=== PATIENT | female | born 1980 | race Caucasian/White ===

== ENCOUNTER → 2019-06-19 08:23 | Outpatient (CLI) | payer MEDICAID, SELFPAY ==
[2019-06-19 09:48] LABS: Thyroid Stim Hormone (TSH) 0.44 uIU/mL (0.358-3.74)
== END ==
LOC: LAB.FUTURE 08:26 → LAB 08:36
PROVIDERS: Family Provider Student in an Organized Health Care Education/Training Program; PCP Student in an Organized Health Care Education/Training Program; Referring Provider Student in an Organized Health Care Education/Training Program; Visit Provider Student in an Organized Health Care Education/Training Program
DX: E03.1 Congenital hypothyroidism without goiter (principal)
CPT/HCPCS: 36415; 84443

== ENCOUNTER → 2019-07-26 06:16 | Outpatient (CLI) | payer MEDICAID, SELFPAY ==
--- NOTE | 2019-07-26 14:09 | NEURO ---
NCS and/or EMG Patient Report Ordering Doctor: Nishant Hayden DATE OF SERVICE: 07/26/19 Paz Morrow is a 38-year-old female presents for electrodiagnostic testing of the lower limbs. She reports heavy feeling in her legs with tingling in the feet. Electrodiagnostic findings: Peroneal motor nerves demonstrate normal distal latency, amplitude and conduction velocity bilaterally. Normal tibial motor response bilaterally. Normal peroneal and tibial F waves. H-reflex is normal bilaterally. Prolonged left sural latency is noted. Normal right sural response. Normal superficial peroneal response bilaterally. Normal plantar responses bilaterally. On needle EMG, all muscles tested in the lower limbs, as well as lumbar paraspinal showed no evidence of denervation with normal motor unit action potentials. Electrodiagnostic impression: This is an abnormal study in the lower limbs. 1. 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 2. No electrodiagnostic evidence is noted for peripheral polyneuropathy. 3. No electrodiagnostic evidence is noted for lumbosacral radiculopathy. 4. No electrodiagnostic evidence noted for tarsal tunnel syndrome. If there are any further questions, please not hesitate to contact me
== END ==
PROVIDERS: Family Provider Student in an Organized Health Care Education/Training Program; PCP Student in an Organized Health Care Education/Training Program; Referring Provider Podiatrist; Visit Provider Podiatrist
DX: M54.10 Radiculopathy, site unspecified (principal); G62.9 Polyneuropathy, unspecified
CPT/HCPCS: 95886; 95913

== ENCOUNTER → 2019-08-21 08:07 | Outpatient (CLI) | payer MEDICAID, SELFPAY ==
[2019-08-21 09:33] LABS: Cholesterol 262 mg/dL (200); High Density Lipoprotein 44 mg/dL; Triglycerides 298 mg/dL; Very Low Density Lipoprotein 60 mg/dL (5-40)
== END ==
PROVIDERS: Family Provider Student in an Organized Health Care Education/Training Program; PCP Student in an Organized Health Care Education/Training Program; Referring Provider Student in an Organized Health Care Education/Training Program; Visit Provider Student in an Organized Health Care Education/Training Program
DX: E78.00 Pure hypercholesterolemia, unspecified (principal)
CPT/HCPCS: 36415; 80061

== ENCOUNTER 2019-09-09 19:06 | Emergency (ER) | payer MEDICAID, SELFPAY ==
[2019-09-09 19:08] VITALS: BP 146/99; PULSE 111; RESP 16; TEMP 36.5; O2SAT 98; BMI 30.7
--- NOTE | 2019-09-09 19:56 | ED.VISSUMM ---
- ER Visit Summary Date of Service: 09/09/19 Chief Complaint: Bilateral foot pain History of Present Illness: The patient is a 38 F who presents with bilateral foot pain that has been getting worse over the past 3 days. Patient states she saw her professor of anthropology, Dr. Hayden, who prescribed her orthotics. Patient states she started a new job recently where she has to stand on her feet for prolonged time. Patient states her pain is sharp and is worse with standing and walking. Patient states she also has some paresthesias in her feet due to neuropathy. Patient denies any trauma or injury. Patient denies any weakness. Physical Examination: Vital signs are stable. Patient is afebrile. Patient is in no acute distress. Musculoskeletal exam shows tenderness over the plantar aspects of the feet bilaterally near the calcaneus. There is mild edema. There is no ecchymosis. There is no bony crepitance or step-off. Range of motion was limited in all motions of the ankles and feet bilaterally secondary to pain. Sensation was intact to light touch. Capillary refill was less than 2 seconds in all digits. Pedal pulses are equal bilaterally. There are no deformities noted. Emergency Department Course and Treatment: Patient had recent x-rays which were normal. I do not feel repeat imaging is necessary at this time. Patient was instructed to follow-up with her primary care physician and professor of anthropology as scheduled. Patient was given a prescription for Naprosyn. Patient was instructed use ice to the feet. Patient understood and was agreeable with the plan. All questions were answered. Disposition: Discharge home Impression: Bilateral foot pain This note was generated with [employer] dictation software. It may contain incorrect words, spelling, and punctuation that were not noted in review of the chart prior to signing ED Disposition - Plan for ED Patient: Disposition: Home or Assisted Living Diagnosis: Bilateral foot pain Instructions: Heel Spur, Plantar Fasciitis Prescriptions: Naproxen [Naprosyn] 500 mg PO BID PRN #20 tab Prescription Printed Referrals: Delaney Vance MD [Primary Care Provider] - 3-5 Days Nishant Hayden DPM [STAFF PHYSICIAN] - 3-5 Days
[2019-09-09] MEDS: Naproxen 250 MG Tablet 500 MG PO (20:50)
[2019-09-09 20:53] VITALS: PULSE 111; RESP 16; O2SAT 98
== END 2019-09-09 20:54 | disposition home or self-care (01) ==
PROVIDERS: Emergency Provider Emergency Medicine; PCP Student in an Organized Health Care Education/Training Program
DX: M79.671 Pain in right foot (principal); M79.672 Pain in left foot; G62.9 Polyneuropathy, unspecified; E03.9 Hypothyroidism, unspecified; F41.9 Anxiety disorder, unspecified; Z72.0 Tobacco use; Z79.899 Other long term (current) drug therapy
CPT/HCPCS: 99283

== ENCOUNTER 2019-09-18 15:42 | Outpatient (RCR) | payer MEDICAID, SELFPAY ==
--- NOTE | 2020-02-20 12:49 | HP.PT.NRP ---
KAUSHIK BEDOLLA was seen in my office for initial evaluation on 09/18/19. The following Plan of Care was established for this patient: Initial Frequency: 2x /Week Initial Duration: 4-6 Weeks Patient/Client Instruction: Educate patient on: Condition, Plan of Care, Risk Factors, Benefits of Fitness Program This patient was last seen in our office 09/18/19. Pertinent comments regarding their Physical therapy will appear below: Pt. was seen for her initial evaluation, but nothing since. Pt. is appropriate for DC from PT at this point in time. At this point I will be discontinuing this patient from physical therapy. I would be happy to see this patient again in the future if found appropriate by the physician. Thank you! CAMMY SorensonT
== END 2019-09-18 19:00 | disposition home or self-care (01) ==
LOC: PT 15:42
PROVIDERS: Family Provider Student in an Organized Health Care Education/Training Program; PCP Student in an Organized Health Care Education/Training Program; Referring Provider Podiatrist; Visit Provider Podiatrist
DX: M25.372 Other instability, left ankle (principal); M25.371 Other instability, right ankle
CPT/HCPCS: 97110; 97161

== ENCOUNTER → 2020-01-09 09:24 | Outpatient (CLI) | payer MEDICAID, SELFPAY ==
[2020-01-09 10:49] LABS: Cholesterol 242 mg/dL (200); High Density Lipoprotein 36 mg/dL; Triglycerides 377 mg/dL; Very Low Density Lipoprotein 75 mg/dL (5-40)
[2020-01-09 10:55] LABS: Hemoglobin A1c 5.7 % (3.8-5.6)
== END ==
LOC: LAB.FUTURE 09:28 → LAB 09:37
PROVIDERS: PCP Student in an Organized Health Care Education/Training Program; Referring Provider Student in an Organized Health Care Education/Training Program; Visit Provider Student in an Organized Health Care Education/Training Program
DX: E78.00 Pure hypercholesterolemia, unspecified (principal)
CPT/HCPCS: 36415; 80061; 83036

== ENCOUNTER 2020-01-17 19:38 | Emergency (ER) | payer MEDICAID, SELFPAY ==
[2020-01-17 19:39] VITALS: BP 135/107; PULSE 118; RESP 15; TEMP 36.8; O2SAT 95; BMI 30.2
--- NOTE | 2020-01-17 20:00 | ED.VIS.GI ---
History of Present Illness Chief Complaint: Abd Pain Informant: Patient - Abdominal Pain/Flank Pain Onset: Yesterday Context: Gradual Onset Timing: Continuous Quality: Cramping Location: - - pelvic - Nausea/Vomiting/Emesis GI Symptom: Nausea - Diarrhea/Melena/Hematochezia GI Symptom: Negative for: Diarrhea, Melena, Hematochezia Associated Symptoms: Negative for: Dysuria, Frequency, Hematuria, Urgency Narrative: Patient is a 39-year-old female status post hysterectomy presenting with 2 days of lower pelvic cramping and abdominal discomfort. States it feels like menstrual cramps but she does not have her uterus anymore. She notes she still has her ovaries. She took ibuprofen about 2 hours prior to arrival with no relief of her symptoms. She does have associated nausea but no vomiting. She states she has some pain in her lower back as well. She states that she has some cramping sensation in her bilateral thighs which is new. Patient denies any new medications or new activities. She denies any recent physical exertion that could cause the muscle cramping that she is aware of. She denies any urinary symptoms, chest pain, shortness of breath or difficulty breathing. States she feels like her heart is racing little fast but attributes that to her anxiety with being in the ER. She denies any fever chills. Denies any other complaints at this time. Past Medical History - Allergies and Home Meds Allergies/Adverse Reactions: Allergies acetaminophen [From Vicodin] Allergy (Severe, Verified 01/17/20 19:38) Other DIFFICULTY SWALLOWING RASH hydrocodone [From Vicodin] Allergy (Severe, Verified 01/17/20 19:38) Other DIFFICULTY SWALLOWING RASH penicillin V Allergy (Severe, Verified 01/17/20 19:38) Other DIFFICULTY SWALLOWING RASH Penicillins Allergy (Verified 01/17/20 19:38) Rash Primary Care Physician: Delaney Vance MD [Primary Care Provider] - Past Medical History: - - Depression, GERD, hypothyroid, anxiety Surgical History: hysterectomy Smoking Status: Current every day smoker Review of Systems General: Denies: Chills, Fever, Sweats Eyes: Denies: Visual changes - bilaterally, Diplopia ENT: Denies: Rhinorrhea, Sore throat Cardiovascular: Denies: Chest pain, Palpitations Respiratory: Denies: Dyspnea, Cough, Dyspnea on exertion Gastrointestinal: Reports: Abdominal pain, Nausea. Denies: Vomiting, Diarrhea, Melena, Hematochezia Genitourinary: Denies: Dysuria, Hematuria, Frequency Musculoskeletal: Reports: Myalgias - Bilateral quad muscles. Denies: Back pain, Extremity Pain Skin: Denies: Rash, Wounds Neurological: Denies: Headache, Weakness, Numbness Psych: Reports: Anxiety. Denies: Depression Physical Exam Vital Signs/Narrative: Vital Signs Temp Pulse Resp BP Pulse Ox 01/17/20 19:39 98.3 F 118 H 15 135/107 H 95 Inital Vital Signs reviewed: Yes General: Well nourished, Well developed, No Acute Distress Head: Normocephalic, Atraumatic Eyes: Perrl, EOMI ENT: Moist mucous membranes, No rhinorrhea Neck: Supple, Nontender Cardiovascular: Regular rate, Regular rhythm, No murmurs Respiratory: No distress, CTA bilaterally, Chest nontender Abdomen: Soft, Nondistended, Normal bowel sounds, Tender - Suprapubic region. Negative for: Guarding, Rebound tenderness Back: Nontender, Normal Inspection. Negative for: CVA tenderness, Spinal tenderness Extremities: Nontender, No edema, - - Muscles are soft with soft compartments Skin: Normal color, No rash Neurological: Alert, Oriented x3, Cranial nerves II-XII grossly intact, Normal Strength, Normal Sensation Psychological: Normal Mood, - - Flat affect, anxious Diagnostic/Tx/Re-eval Clinical Impression(s) from Imaging Studies Abdomen/Pelvis CT 01/17/20 21:17 IMPRESSION: Hepatomegaly. Mass in the left lobe with probable hemangioma. Contracted gallbladder. Bilateral renal stones. No hydronephrosis. Electronically Signed: Tyrese Humphrey MD at 22:17 EDT , Service support , Laboratory Data 01/17/20 01/17/20 01/17/20 20:05 20:05 20:15 WBC 17.1 H RBC 4.45 Hgb 13.3 Hct 40.4 MCV 90.8 MCH 29.9 MCHC 32.9 RDW Std Deviation 44.4 H RDW Coeff of Tevin 13.4 Plt Count 419 MPV 9.8 Immature Gran % (Auto) 1.600 H Neut % (Auto) 58.7 Lymph % (Auto) 30.5 Marshall % (Auto) 5.3 Eos % (Auto) 3.0 Baso % (Auto) 0.9 Absolute Neuts (auto) 10.0 H Absolute Lymphs (auto) 5.20 H Nucleated RBC % 0 Differential Comment SEE COMMENT Diff Path Review May foll Platelet Estimate SLT INC RBC Morphology N CHROM Anisocytosis RARE Macrocytosis RARE Sodium 139 Potassium 4.3 Chloride 106 Carbon Dioxide 24.0 Anion Gap 9 BUN 16 Creatinine 0.88 Estim Creat Clear Calc 78.00 Est GFR (MDRD) Af Amer 93 Est GFR (MDRD) Non-Af 77 BUN/Creatinine Ratio 18.2 Glucose 145 H Calcium 9.1 Magnesium 2.2 Total Bilirubin 0.30 AST 50 H ALT 71 H Alkaline Phosphatase 58 Total Creatine Kinase 158 Total Protein 7.7 Albumin 3.6 Globulin 4.1 Albumin/Globulin Ratio 0.9 Urine Color Yellow Urine Clarity Sl. Cloudy Urine pH 7.0 Ur Specific [place] 1.015 Urine Protein 15 H Urine Glucose (UA) Normal Urine Ketones Negative Urine Occult Blood Negative Urine Nitrite Negative Urine Bilirubin Negative Urine Urobilinogen 1 H Ur Leukocyte Esterase 25 H Urine RBC 0 SEEN Urine WBC 0 SEEN Ur Squamous Epith Cells 5-10 SEEN Urine Bacteria 1+ Urine Mucus 0 SEEN - Medical Decision Making She is evaluated for abdominal/pelvic cramping. She is status post hysterectomy. She denies any abnormal vaginal bleeding or discharge. Her abdomen is soft exam. She is hemodynamically stable. She is tachycardic but also attributes that to her anxiety. Belly labs obtained. CBC does show a leukocytosis of 17.1. Patient does note that she has a history of significant leukocytosis and has been referred to hematology for concern of leukemia. She has been told everything is normal fine. CMP is remarkable for very mild transaminitis. Patient states she has been told she has fatty liver before. She also states she is a history of a hemangioma in her liver. Urinalysis is not consistent with infection however does have 25 leukoesterase with contamination. Urine culture sent but she is not started on any antibiotics at this time. CT of the abdomen and pelvis with IV contrast obtained. No acute intra-abdominal process or free fluid is seen. Patient does have hepatomegaly with a likely hemangioma. This is consistent with patient's history. Her gallbladder is contracted and patient states she did need to go to sandwiches before coming in. She does not have pain in her right upper quadrant. Patient does receive 2 doses of morphine as well as Toradol in the emergency room. On reevaluation she is feeling much better. She is then given Bentyl. Patient will be discharged home. She is counseled that no acute intra-abdominal pathology was found today and she should just follow-up with her primary care doctor. She will touch base with her PCP about her hemangioma, abdominal pain and leukocytosis. Patient does admit that she has had more stress lately and is currently living in a fci. She is not sure if this is related to abdominal pain. Patient is counseled on signs and symptoms requiring return to the emergency room. Patient verbalizes agreement and understand this plan. Patient discharged home in stable and improved condition. ED Disposition - Plan for ED Patient: Disposition: Home or Assisted Living Diagnosis: Abdominal pain, Leukocytosis, Liver hemangioma Instructions: ED Abdominal Pain Unkn Cause Fem Prescriptions: Dicyclomine HCl [Bentyl] 10 mg PO TIDAC PRN #20 cap PRN Reason: abdominal pain Transmission Status: Received by [id number] Referrals: Delaney Vance MD [Primary Care Provider] - Additional Instructions: Evaluated for abdominal pain. The exact is not clear today. Your CT did show a liver mass consistent with a hemangioma. Please follow-up with ultrasound as previously recommended by your primary care doctor. You did have a mild elevation of your liver enzymes on lab work as well as an elevation of your white blood cell count. Again please follow-up with your primary care doctor for this. No sign of acute infection. Urine culture sent but do not think you have a urinary tract infection. Will be contacted if you do require antibiotics. You were discharge from the hospital at 11 PM
[2020-01-17 20:17] LABS: Basophil# 0.15 X10^3/uL; Basophil% 0.9 % (0-1); Eosinophil# 0.52 X10^3/uL; Hematocrit 40.4 % (37-47); Hemoglobin 13.3 g/dL (12.0-15.0); Lymphocyte % 30.5 % (19-41); Mean Corp Hgb Conc 32.9 g/dL (32-36); Mean Corpuscular Hgb 29.9 pg (27.0-32.0); Mean Corpuscular Volume 90.8 fL (81-99); Mean Platelet Vol. 9.8 fl (6.2-12.0); Monocyte% 5.3 % (0-10); NRBC Flagged by Analyzer 0 % (0-5); Neutrophil # 10.02 X10^3/uL (2.7-7.7); Neutrophil % 58.7 % (47-70); POSITIVE DIFFERENTIAL YES; POSITIVE MORPHOLOGY YES; Platelet Count 419 K/mm3 (150-450); RBC Distribution Width CV 13.4 % (11.6-14.6); RBC Distribution Width SD 44.4 fl (35.1-43.9); Red Blood Count 4.45 M/mm3 (4.2-5.4); White Blood Count 17.1 K/mm3 (4.4-11.0)
[2020-01-17 20:18] LABS: Mucous, Urine 0 SEEN /hpf (<or=2+); Red Blood Cells-Urine 0 SEEN /hpf (0-5); White Blood Cells 0 SEEN /hpf (0-5)
[2020-01-17] MEDS: Ondansetron 4 MG/2 ML Vial IV (20:23)
[2020-01-17] MEDS: 0.9% Normal Saline 1,000 ML 1000 ML IV (20:24)
[2020-01-17] MEDS: Morphine 4 MG/ML Syringe IV ×2 (20:24→22:12)
[2020-01-17 20:26] LABS: Color, Urine Yellow (Yellow); Glucose, Dipstick Normal (Normal); Ketone-Dipstick Negative (Negative); Leukocyte Esterase-Dipstick 25 /ul (Negative); Nitrite-Dipstick Negative (Negative); Occult Blood-Urine Negative /ul (Negative); Protein-Dipstick 15 mg/dl (Negative); Specific Gravity, Urine 1.015 (1.002-1.030); Urine Bilirubin Dipstick Negative (Negative); Urine Clarity Sl. Cloudy (Clear); Urine Urobilinogen 1 mg/dl (Normal)
[2020-01-17 20:45] LABS: ALB/GLOB Ratio 0.9 RATIO (0.9-2.4); AST(SGOT) 50 U/L (15-37); Alanine Aminotransfer ALT/SGPT 71 U/L (13-56); Albumin, Serum 3.6 g/dL (3.2-5.0); Alkaline Phosphatase 58 U/L (45-117); Anion Gap 9 (5-15); BUN 16 mg/dL (7-18); BUN/Creat Ratio 18.2 RATIO (10-20); CPK Total, Creatine Kinase 158 U/L (26-192); Calcium,Total 9.1 mg/dL (8.5-10.1); Chloride 106 mmol/L (98-107); Creatinine, Serum 0.88 mg/dL (0.55-1.02); EST Glomerular Filtration Rate 77 mL/min (>60); Est Glom Filt Rate - Afr Amer 93 mL/min (>60); Globulin 4.1 g/dL (2.2-4.2); Glucose 145 mg/dL (74-106); Magnesium 2.2 mg/dL (1.6-2.6); Potassium 4.3 mmol/L (3.5-5.1); Protein, Total 7.7 g/dL (6.4-8.2); Sodium Level 139 mmol/L (136-145)
[2020-01-17 20:47] LABS: Bacteria 1+ /hpf (None Seen); Squamous Epithelial Cells - UA 5-10 SEEN /hpf (5-10)
[2020-01-17 20:53] LABS: Differential Indicated SCAN CRITERIA MET
[2020-01-17 20:55] LABS: Anisocytosis RARE; Macrocytosis RARE; Platelet Estimate SLT INC (ADEQ); Red Cell Morphology N CHROM NORMAL (NORM C&C)
--- NOTE | 2020-01-17 21:17 | CT_ITS ---
STUDY: CT ABDOMEN AND PELVIS WITHOUT CONTRAST REASON FOR EXAM: Female, 39 years old. ABD PAIN WITH NAUSEA, RADIATES POSTERIOR WITH LEG CRAMPS RADIATION DOSAGE (If Supplied By Facility): CTDIvol = ( 18.70 ) mGy, DLP = ( 997.88 ) mGycm TECHNIQUE: Transaxial images were obtained from the dome of the diaphragm to the symphysis pubis without oral contrast, and without intravenous contrast. Sagittal and coronal images were reconstructed. Individualized dose optimization techniques were used for this CT. COMPARISON: October 28, 2012 FINDINGS: Mild lower lung interstitial accentuation. There is right middle lobe atelectasis The visualized portions of the heart are within normal limits. There is hepatomegaly with diffuse hepatic enlargement. There is 3.6 cm enhancing mass in the left lobe of the liver with probable hemangioma. The gallbladder is contracted. Normal spleen. Normal pancreas. Normal bilateral adrenal glands. There are 0.2 and 0.3 cm stones at the upper pole of the right kidney. There is a 0.3 cm stone in the midpole of the left kidney. There is no hydronephrosis. Normal visualized stomach. Normal small intestine. Normal colon. The appendix is visualized and appears normal. Normal abdominal aorta. Normal inferior vena cava. Normal retroperitoneum. Normal urinary bladder. There is absence of the uterus consistent with a prior hysterectomy. There is no free fluid in the abdomen or pelvis. There is postoperative change of the abdominal wall. Normal osseous structures. CT/Abdomen/Pelvis W IV Cont ONLY IMPRESSION: Hepatomegaly. Mass in the left lobe with probable hemangioma. Contracted gallbladder. Bilateral renal stones. No hydronephrosis. Electronically Signed: Tyrese Humphrey MD at 22:17 EDT , Service support ,
[2020-01-17] MEDS: Ketorolac 15 MG/ML Vial IV (22:10)
[2020-01-17 22:15] VITALS: BP 118/85; PULSE 87; RESP 16; O2SAT 95
[2020-01-17 22:58] VITALS: BP 115/82; PULSE 88; RESP 18; O2SAT 98
[2020-01-17] MEDS: Dicyclomine 10 MG Capsule 20 MG PO (23:01)
[2020-01-18 10:01] LABS: Pathologist Review Reviewed
== END 2020-01-17 23:17 | disposition home or self-care (01) ==
PROVIDERS: Emergency Provider Emergency Medicine; PCP Student in an Organized Health Care Education/Training Program
DX: R10.9 Unspecified abdominal pain (principal); R10.2 Pelvic and perineal pain; D72.829 Elevated white blood cell count, unspecified; D18.03 Hemangioma of intra-abdominal structures; E03.9 Hypothyroidism, unspecified; F32.9 Major depressive disorder, single episode, unspecified; F41.9 Anxiety disorder, unspecified; K21.9 Gastro-esophageal reflux disease without esophagitis; F17.210 Nicotine dependence, cigarettes, uncomplicated; Z79.899 Other long term (current) drug therapy
CPT/HCPCS: 74177; 80053; 81001; 82550; 83735; 85025; 87086; 87088; 96361; 96374; 96375; 96376; 99284; J7030; Q9967; A4216; J2405

== ENCOUNTER 2020-02-01 19:06 | Emergency (ER) | payer MEDICAID, SELFPAY ==
[2020-02-01 19:06] VITALS: BP 127/94; PULSE 100; RESP 18; TEMP 36.7; O2SAT 97; BMI 29.7
[2020-02-01 19:23] LABS: Red Blood Cells-Urine 0 SEEN /hpf (0-5); White Blood Cells 0 SEEN /hpf (0-5)
[2020-02-01 19:31] LABS: Color, Urine Yellow (Yellow); Glucose, Dipstick Normal (Normal); Ketone-Dipstick 5 mg/dl (Negative); Leukocyte Esterase-Dipstick Negative /ul (Negative); Nitrite-Dipstick Negative (Negative); Occult Blood-Urine Negative /ul (Negative); Protein-Dipstick 15 mg/dl (Negative); Specific Gravity, Urine 1.025 (1.002-1.030); Urine Bilirubin Dipstick Negative (Negative); Urine Clarity Cloudy (Clear); Urine Urobilinogen 1 mg/dl (Normal)
[2020-02-01 19:36] LABS: Squamous Epithelial Cells - UA 5-10 SEEN /hpf (5-10)
[2020-02-01 19:37] LABS: Bacteria RARE /hpf (None Seen); Calcium Oxalate Crystals Ur 1+ /hpf (<or=2+); Mucous, Urine 1+ /hpf (<or=2+)
[2020-02-01] MEDS: 0.9% Normal Saline 1,000 ML 1000 ML IV (19:50)
[2020-02-01] MEDS: Ondansetron 4 MG/2 ML Vial IV (19:50)
[2020-02-01 20:15] LABS: Anion Gap 7 (5-15); BUN 8 mg/dL (7-18); BUN/Creat Ratio 13.2 RATIO (10-20); Calcium,Total 8.4 mg/dL (8.5-10.1); Chloride 112 mmol/L (98-107); Creatinine, Serum 0.61 mg/dL (0.55-1.02); EST Glomerular Filtration Rate 117 mL/min (>60); Est Glom Filt Rate - Afr Amer 142 mL/min (>60); Estimated Creatinine Clearance 112.52 ml/min; Glucose 99 mg/dL (74-106); Potassium 3.5 mmol/L (3.5-5.1); Sodium Level 143 mmol/L (136-145)
--- NOTE | 2020-02-01 20:40 | ED.VIS.GEN ---
History of Present Illness Chief Complaint: Nausea/Vomiting/Diarrhea Informant: Patient Onset: Yesterday Context: Sudden Onset Timing: Intermittent, Waxes and wanes Quality: Colicky Location: Generalized abdominal Current Severity: Mild Maximum Severity: Severe Worsened by: Nothing Relieved by: Nothing Associated Symptoms: Dry mouth, thirst, slight discomfort with urination and decreased urine out Narrative: Patient is a 39-year-old woman with no significant past medical history who presents with nausea, vomiting diarrhea that started yesterday afternoon. She states she ate something which he thought was bad Wednesday evening around 1800. No one else became ill. She denies hematemesis, melena medic easier. She denies mucus in her stool. She denies black or maroon diarrhea. She states she has pure water coming from her rectum. She cannot count the amount of time she has gone. She does report generalized malaise and weakness. She denies myalgias or arthralgias. She denies fever or chills. She denies headache. She denies visual, ocular auditory symptoms. She denies cardiac or respiratory symptoms. Prior similar symptoms: No Recent Illness/Hospitalization: No - Past Medical History (1) Anxiety disorder Status: Chronic (2) Hypothyroidism Status: Chronic Past Medical History - Allergies and Home Meds Allergies/Adverse Reactions: Allergies acetaminophen [From Vicodin] Allergy (Severe, Verified 02/01/20 19:08) Other DIFFICULTY SWALLOWING RASH hydrocodone [From Vicodin] Allergy (Severe, Verified 02/01/20 19:08) Other DIFFICULTY SWALLOWING RASH penicillin V Allergy (Severe, Verified 02/01/20 19:08) Other DIFFICULTY SWALLOWING RASH Penicillins Allergy (Verified 02/01/20 19:08) Rash Primary Care Physician: Delaney Vance MD [Primary Care Provider] - Prior records reviewed: Yes - History of GERD and diverticulosis Surgical History: hysterectomy Lives: Alone - And is Smoking Status: Current every day smoker Alcohol: Rare Drugs: None Review of Systems General: Reports: Malaise. Denies: Chills, Fever, Sweats, Weight loss Eyes: Denies: Visual changes - bilaterally, Blurred Vision - bilaterally ENT: Denies: Rhinorrhea, Sore throat Cardiovascular: Denies: Chest pain, Palpitations Respiratory: Denies: Dyspnea, Cough, Dyspnea on exertion Gastrointestinal: Reports: Abdominal pain, Nausea, Vomiting, Diarrhea. Denies: Melena, Hematochezia Genitourinary: Reports: Dysuria. Denies: Hematuria, Frequency, -, - Musculoskeletal: Denies: Myalgias, Arthralgias, Neck pain, Back pain, Swelling, Extremity Pain, -, - Skin: Denies: Rash, Wounds Neurological: Reports: Weakness. Denies: Headache, Parasthesia, Numbness, -, - Psych: Reports: Depression, Anxiety Endocrine: Denies: Polyuria, Polydipsia Hematologic: Denies: Easy bruising, Easy bleeding Physical Exam Vital Signs/Narrative: Vital Signs Temp Pulse Resp BP Pulse Ox 02/01/20 19:06 98.0 F 100 18 127/94 H 97 Inital Vital Signs reviewed: Yes General: Well nourished, Well developed, No Acute Distress Head: Normocephalic, Atraumatic Eyes: Perrl, EOMI ENT: Moist mucous membranes, No rhinorrhea Neck: Supple, Nontender Cardiovascular: Regular rate, Regular rhythm, No murmurs Respiratory: No distress, CTA bilaterally, Chest nontender Abdomen: Soft, Normal bowel sounds, No masses, Tender, Hypoactive bowel sounds, - - Tympanitic throughout. Negative for: Guarding, Rebound tenderness, Hyperactive bowel sounds, Hepatomegaly, Splenomegaly, Mass, Pulsatile mass Rectal: Deferred Back: Nontender, Normal Inspection. Negative for: CVA tenderness Extremities: Nontender, No edema Skin: Normal color, No rash, No Trauma. Negative for: Cyanosis, Diaphoresis, Jaundice Neurological: Alert, Oriented x3, Cranial nerves II-XII grossly intact, Normal Strength, Normal Sensation Psychological: Normal affect, Normal Mood Diagnostic/Tx/Re-eval Laboratory Results 02/01/20 02/01/20 19:10 19:56 Sodium 143 Potassium 3.5 Chloride 112 H Carbon Dioxide 24.0 Anion Gap 7 BUN 8 Creatinine 0.61 Estim Creat Clear Calc 112.52 Est GFR (MDRD) Af Amer 142 Est GFR (MDRD) Non-Af 117 BUN/Creatinine Ratio 13.2 Glucose 99 Calcium 8.4 L Urine Color Yellow Urine Clarity Cloudy Urine pH 5.0 Ur Specific [place] 1.025 Urine Protein 15 H Urine Glucose (UA) Normal Urine Ketones 5 H Urine Occult Blood Negative Urine Nitrite Negative Urine Bilirubin Negative Urine Urobilinogen 1 H Ur Leukocyte Esterase Negative Urine RBC 0 SEEN Urine WBC 0 SEEN Ur Squamous Epith Cells 5-10 SEEN Calcium Oxalate Crystal 1+ Urine Bacteria RARE Urine Mucus 1+ Urine specific gravity is elevated with out evidence of infection. Electrolytes are unremarkable and specifically potassium. There is no evidence of acute kidney injury either. - Medical Decision Making IV was established since clinically patient is dehydrated. She was treated with antiemetic. She received Bentyl for her cramping pain and a prescription for Bentyl. Because of the amount of diarrhea electrolytes were obtained to assess for hypo-kalemia and acute kidney injury. Because she complained of dysuria UA was obtained. ED Disposition - Plan for ED Patient: Disposition: Home or Assisted Living Diagnosis: Abdominal pain, vomiting, and diarrhea, Mild dehydration, Dysuria Instructions: ED Vomiting and Diarrhea Nonspecific Adult Prescriptions: Dicyclomine HCl [Bentyl] 20 mg PO TIDAC #20 cap Transmission Status: Pending to [id number] Referrals: Delaney Vance MD [Primary Care Provider] - 3-5 Days if not improving
[2020-02-01] MEDS: Dicyclomine 10 MG Capsule 20 MG PO (21:04)
[2020-02-01 21:07] VITALS: PULSE 88; RESP 16; O2SAT 98
== END 2020-02-01 21:09 | disposition home or self-care (01) ==
PROVIDERS: Emergency Provider Emergency Medicine; PCP Student in an Organized Health Care Education/Training Program
DX: E86.0 Dehydration (principal); R10.84 Generalized abdominal pain; R11.2 Nausea with vomiting, unspecified; R19.7 Diarrhea, unspecified; R30.0 Dysuria; E03.9 Hypothyroidism, unspecified; F41.9 Anxiety disorder, unspecified; F17.200 Nicotine dependence, unspecified, uncomplicated; Z79.899 Other long term (current) drug therapy; Z88.0 Allergy status to penicillin; Z88.5 Allergy status to narcotic agent; Z90.710 Acquired absence of both cervix and uterus
CPT/HCPCS: 80048; 81001; 96361; 96374; 99283; J7030; A4216; J2405

== ENCOUNTER 2020-02-03 14:15 | Emergency (ER) | payer MEDICAID, SELFPAY ==
[2020-02-03 14:17] VITALS: BP 135/89; PULSE 132; RESP 20; TEMP 36.6; O2SAT 97; BMI 31.2
--- NOTE | 2020-02-03 14:33 | CT_ITS ---
STUDY: CT ABDOMEN AND PELVIS WITHOUT CONTRAST REASON FOR EXAM: Female, 39 years old. ABD PAIN/BLOATING, HX CIRRHOSIS RADIATION DOSAGE (If Supplied By Facility): CTDIvol = ( 13.14 ) mGy, DLP = ( 1068.37 ) mGycm TECHNIQUE: Transaxial images were obtained from the dome of the diaphragm to the symphysis pubis without oral contrast, and without intravenous contrast. Sagittal and coronal images were reconstructed. Individualized dose optimization techniques were used for this CT. COMPARISON: January 17, 2020. FINDINGS: The visualized lung bases demonstrate atelectasis. The visualized portions of the heart are within normal limits. Partially enhancing 3 cm left hepatic lesion possibly a hemangioma. Liver. Normal gallbladder and extrahepatic biliary system. Normal spleen. Normal pancreas. Mild ascites. Normal bilateral adrenal glands. Normal right kidney. Normal left kidney. Normal visualized stomach. Mild fluid distended small intestine with wall thickening. Normal colon. The appendix is visualized and appears normal. Normal abdominal aorta. Normal inferior vena cava. Normal retroperitoneum. Normal urinary bladder. Moderate pelvic free fluid. Small fatty ventral hernia. Normal osseous structures. CT/Abdomen/Pelvis W IV Cont ONLY IMPRESSION: Probable left hepatic hemangioma. Fluid-filled distended small bowel loops with wall thickening. Mild ascites. Moderate pelvic fluid. Small fatty ventral hernia. Electronically Signed: Jean Pierre Trinidad DO at 15:44 EDT Tel [phone], Service support ,
--- NOTE | 2020-02-03 14:35 | ED.DCSUM_ITS ---
History of Present Illness <Jaime Benitez - Last Filed: 02/03/20 14:54> Informant: Patient - Abdominal Pain/Flank Pain Onset: Days - 5 days Context: Gradual Onset Timing: Intermittent Quality: Cramping Location: LLQ Current Severity: Severe Maximum Severity: Severe Worsened by: Food, Movement Relieved by: Remaining Still - Nausea/Vomiting/Emesis GI Symptom: Nausea, Vomiting Onset: Today Quality: Nonbilious Severity: Severe Episodes: 2 - Diarrhea/Melena/Hematochezia GI Symptom: Diarrhea Onset: Today Stool Quality: Loose Severity: Severe Episodes: 5 Associated Symptoms: Negative for: Dysuria, Frequency, Hematuria, Urgency Prior similar symptoms: Yes Recent Illness/Hospitalization: No <Rc Millan - Last Filed: 02/03/20 16:01> Chief Complaint: Abd Pain Past Medical History <Jaime Benitez - Last Filed: 02/03/20 14:54> Prior records reviewed: Yes Past Medical History: - - hypothyroidism, depression, anxiety Surgical History: hysterectomy Lives: With Family Smoking Status: Current every day smoker Alcohol: None Drugs: None <Rc Millan - Last Filed: 02/03/20 16:01> - Allergies and Home Meds Allergies/Adverse Reactions: Allergies acetaminophen [From Vicodin] Allergy (Severe, Verified 02/03/20 14:20) Other DIFFICULTY SWALLOWING RASH hydrocodone [From Vicodin] Allergy (Severe, Verified 02/03/20 14:20) Other DIFFICULTY SWALLOWING RASH penicillin V Allergy (Severe, Verified 02/03/20 14:20) Other DIFFICULTY SWALLOWING RASH Penicillins Allergy (Verified 02/03/20 14:20) Rash Primary Care Physician: Delaney Vance MD [Primary Care Provider] - Review of Systems All systems negative except as indicated General: Denies: Chills, Fever, Sweats Eyes: Denies: Visual changes - bilaterally, Diplopia ENT: Denies: Rhinorrhea, Sore throat Cardiovascular: Denies: Chest pain, Palpitations Respiratory: Denies: Dyspnea, Cough, Dyspnea on exertion Gastrointestinal: Reports: Abdominal pain, Nausea, Vomiting, Diarrhea. Denies: Constipation, Melena, Hematochezia Genitourinary: Denies: Dysuria, Hematuria, Frequency Musculoskeletal: Denies: Back pain, Swelling, Extremity Pain Skin: Denies: Rash, Wounds Neurological: Denies: Headache, Weakness, Numbness <Rc Millan - Last Filed: 02/03/20 16:01> Physical Exam Vital Signs/Narrative: Vital Signs Temp Pulse Resp BP Pulse Ox 02/03/20 14:17 97.9 F 132 H 20 H 135/89 H 97 <Jaime Benitez - Last Filed: 02/03/20 14:54> Vital Signs/Narrative: Vital Signs Temp Pulse Resp BP Pulse Ox 02/03/20 14:17 97.9 F 132 H 20 H 135/89 H 97 Inital Vital Signs reviewed: Yes General: Well nourished, Well developed, No Acute Distress Head: Normocephalic, Atraumatic Eyes: Perrl, EOMI ENT: Moist mucous membranes, No rhinorrhea Neck: Supple, Nontender Cardiovascular: Regular rate, Regular rhythm, No murmurs Respiratory: No distress, CTA bilaterally, Chest nontender Abdomen: Soft, Normal bowel sounds, Tender - Epigastric, left upper quadrant and left lower quadrant tenderness to palpation with moderate distention but no guarding no rebound or peritoneal signs. Negative for: Guarding, Rebound tenderness Back: Nontender, Normal Inspection Extremities: Nontender, No edema Skin: Normal color, No rash Neurological: Alert, Oriented x3, Cranial nerves II-XII grossly intact, Normal Strength, Normal Sensation Psychological: Normal affect, Normal Mood <Rc Millan - Last Filed: 02/03/20 16:01> Diagnostic/Tx/Re-eval - Medical Decision Making Seen with Rc the PA agree with history and physical as above Complains of crampy abdominal pain copious watery diarrhea the other day after eating María Elena sandwich, no exposures to coronavirus, copious watery diarrhea no blood no fever abdomen slightly distended there is no rebound guarding organomegaly nonspecific discomfort at this time screening labs are obtained see the chart for full details <Jb Benitezeffiemoises - Last Filed: 02/03/20 14:54> CT: Abdomen and Pelvis - Medical Decision Making Patient was given IV fluids Zofran and morphine. Her laboratory work-up was remarkable for a white blood cell count of 19.5. CMP and lipase were within normal limits. CT scan abdomen and pelvis with IV contrast demonstrated a left hepatic meningioma. Fluid-filled distended small bowel loops with wall thickening. Mild ascites. Moderate pelvic fluid. Small ventral hernia. Repeat exam the patient feels well. Her abdomen is soft and nontender. Patient tolerating by mouth. At this time the patient states she feels well enough to go home we offered her admission and she declined. She knows about this hemangioma and follows with a [employer] crm developer in [place]. She actually has an appointment with her [employer] c[employer] developer on Wednesday. We discussed with her that we are not definitively certain the cause of her ascites but she will need more follow-up with her [employer] c[employer] developer on Wednesday. She states she has no history of ascites or liver disease. Her liver enzymes were within normal limits. She states that her [employer] c[employer] developer has records has access to our records here. She was advised on a bland diet we discussed supportive care and she will follow-up on Wednesday or return back to the emergency department for worsening symptoms which were discussed. Impressions Abdomen/Pelvis CT 02/03/20 14:33 IMPRESSION: Probable left hepatic hemangioma. Fluid-filled distended small bowel loops with wall thickening. Mild ascites. Moderate pelvic fluid. Small fatty ventral hernia. Electronically Signed: Jean Pierre Trinidad DO at 15:44 EDT Tel [phone], Service support , 02/03/20 14:33 Abdomen/Pelvis W IV Cont ONLY [CT] Stat Laboratory Results 02/03/20 02/03/20 02/03/20 14:30 14:30 14:55 WBC 19.5 H RBC 4.58 Hgb 14.0 Hct 43.1 MCV 94.1 MCH 30.6 MCHC 32.5 RDW Std Deviation 49.5 H RDW Coeff of Tevin 14.4 Plt Count 376 MPV 9.8 Immature Gran % (Auto) 3.100 H Neut % (Auto) 63.9 Lymph % (Auto) 22.9 [place] % (Auto) 6.3 Eos % (Auto) 3.2 Baso % (Auto) 0.6 Absolute Neuts (auto) 12.5 H Absolute Lymphs (auto) 4.46 Nucleated RBC % 0 Platelet Estimate MOD INC RBC Morphology N CHROM Anisocytosis RARE Macrocytosis RARE Sodium 140 Potassium 3.9 Chloride 112 H Carbon Dioxide 20.0 L Anion Gap 8 BUN 6 L Creatinine 0.76 Estim Creat Clear Calc 90.31 Est GFR (MDRD) Af Amer 110 Est GFR (MDRD) Non-Af 91 BUN/Creatinine Ratio 7.9 L Glucose 142 H Calcium 8.8 Total Bilirubin 0.20 AST 14 L ALT 37 Alkaline Phosphatase 53 Total Protein 7.0 Albumin 3.1 L Globulin 3.9 Albumin/Globulin Ratio 0.8 L Lipase 89 Urine Color Yellow Urine Clarity Cloudy Urine pH 5.0 Ur Specific Revel[place] 1.030 Urine Protein 15 H Urine Glucose (UA) Normal Urine Ketones Negative Urine Occult Blood Negative Urine Nitrite Negative Urine Bilirubin Negative Urine Urobilinogen Normal Ur Leukocyte Esterase Negative Urine RBC 0 SEEN Urine WBC 0-5 SEEN Ur Squamous Epith Cells 10-25 SEEN Calcium Oxalate Crystal 1+ Urine Bacteria 2+ Hyaline Casts 0-5 SEEN Fine Granular Casts 0-5 SEEN Urine Mucus 2+ Laboratory Tests 02/03/20 02/03/20 02/03/20 Range/Units 14:55 14:30 14:30 WBC 19.5 H (4.4-11.0) K/mm3 RBC 4.58 (4.2-5.4) M/mm3 Hgb 14.0 (12.0-15.0) g/dL Hct 43.1 (37-47) % MCV 94.1 (81-99) fL MCH 30.6 (27.0-32.0) pg MCHC 32.5 (32-36) g/dL RDW Std Deviation 49.5 H (35.1-43.9) fl RDW Coeff of Tevin 14.4 (11.6-14.6) % Plt Count 376 (150-450) K/mm3 MPV 9.8 (6.2-12.0) fl Immature Gran % (Auto) 3.100 H (0.0-0.9) % Neut % (Auto) 63.9 (47-70) % Lymph % (Auto) 22.9 (19-41) % [place] % (Auto) 6.3 (0-10) % Eos % (Auto) 3.2 (0-5) % Baso % (Auto) 0.6 (0-1) % Absolute Neuts (auto) 12.5 H (2.0-7.7) X10^3/uL Absolute Lymphs (auto) 4.46 (0.83-4.51) X10^3/uL Nucleated RBC % 0 (0-5) % Platelet Estimate MOD INC (ADEQ) RBC Morphology N CHROM (NORM C&C) NORMAL Anisocytosis RARE Macrocytosis RARE Sodium 140 (136-145) mmol/L Potassium 3.9 (3.5-5.1) mmol/L Chloride 112 H (98-107) mmol/L Carbon Dioxide 20.0 L (21.0-32.0) mmol/L Anion Gap 8 (5-15) BUN 6 L (7-18) mg/dL Creatinine 0.76 (0.55-1.02) mg/dL Estim Creat Clear Calc 90.31 ml/min Est GFR (MDRD) Af Amer 110 (>60) mL/min Est GFR (MDRD) Non-Af 91 (>60) mL/min BUN/Creatinine Ratio 7.9 L (10-20) RATIO Glucose 142 H (74-106) mg/dL Calcium 8.8 (8.5-10.1) mg/dL Total Bilirubin 0.20 (0.20-1.00) mg/dL AST 14 L (15-37) U/L ALT 37 (13-56) U/L Alkaline Phosphatase 53 (45-117) U/L Total Protein 7.0 (6.4-8.2) g/dL Albumin 3.1 L (3.2-5.0) g/dL Globulin 3.9 (2.2-4.2) g/dL Albumin/Globulin Ratio 0.8 L (0.9-2.4) RATIO Lipase 89 (73-393) U/L Urine Color Yellow (Yellow) Urine Clarity Cloudy (Clear) Urine pH 5.0 (5.0 - 8.0) Ur Specific [place] 1.030 (1.002-1.030) Urine Protein 15 H (Negative) mg/dl Urine Glucose (UA) Normal (Normal) mg/dl Urine Ketones Negative (Negative) mg/dl Urine Occult Blood Negative (Negative) /ul Urine Nitrite Negative (Negative) Urine Bilirubin Negative (Negative) mg/dL Urine Urobilinogen Normal (Normal) mg/dl Ur Leukocyte Esterase Negative (Negative) /ul Urine RBC 0 SEEN (0-5) /hpf Urine WBC 0-5 SEEN (0-5) /hpf Ur Squamous Epith Cells 10-25 SEEN (5-10) /hpf Calcium Oxalate Crystal 1+ (<or=2+) /hpf Urine Bacteria 2+ (None Seen) /hpf Hyaline Casts 0-5 SEEN (0-5) /lpf Fine Granular Casts 0-5 SEEN (0-5) /lpf Urine Mucus 2+ (<or=2+) /hpf <Rc Millan - Last Filed: 02/03/20 16:01> ED Disposition <Jaime Benitez - Last Filed: 02/03/20 14:54> <Rc Millan - Last Filed: 02/03/20 16:01> - Plan for ED Patient: Disposition: Home or Assisted Living Diagnosis: Abdominal pain, Nausea vomiting and diarrhea, Hepatic hemangioma, Leukocytosis Instructions: ED Abdominal Pain Unkn Cause Fem, ED Vomiting and Diarrhea Nonspecific Adult Referrals: Delaney Vance MD [Primary Care Provider] -
[2020-02-03] MEDS: 0.9% Normal Saline 1,000 ML 1000 ML IV (14:38)
[2020-02-03] MEDS: Morphine 4 MG/ML Syringe IV ×2 (14:39→15:34)
[2020-02-03] MEDS: Ondansetron 4 MG/2 ML Vial IV (14:40)
[2020-02-03 14:43] LABS: Absolute Lymphocyte Count 4.46 X10^3/uL (0.83-4.51); Absolute Neutrophil Count 12.5 X10^3/uL (2.0-7.7); Basophil# 0.11 X10^3/uL; Basophil% 0.6 % (0-1); Eosinophil# 0.63 X10^3/uL; Eosinophils% 3.2 % (0-5); Hematocrit 43.1 % (37-47); Lymphocyte # 4.46 X10^3/ul (4.0); Lymphocyte % 22.9 % (19-41); Mean Corp Hgb Conc 32.5 g/dL (32-36); Mean Corpuscular Hgb 30.6 pg (27.0-32.0); Mean Corpuscular Volume 94.1 fL (81-99); Mean Platelet Vol. 9.8 fl (6.2-12.0); Monocyte# 1.22 X10^3/uL; Monocyte% 6.3 % (0-10); NRBC Flagged by Analyzer 0 % (0-5); Neutrophil # 12.45 X10^3/uL (2.7-7.7); Neutrophil % 63.9 % (47-70); POSITIVE MORPHOLOGY YES; Platelet Count 376 K/mm3 (150-450); RBC Distribution Width CV 14.4 % (11.6-14.6); RBC Distribution Width SD 49.5 fl (35.1-43.9); Red Blood Count 4.58 M/mm3 (4.2-5.4); White Blood Count 19.5 K/mm3 (4.4-11.0)
[2020-02-03 14:44] LABS: Differential Indicated SCAN CRITERIA MET
[2020-02-03 14:56] LABS: ALB/GLOB Ratio 0.8 RATIO (0.9-2.4); AST(SGOT) 14 U/L (15-37); Alanine Aminotransfer ALT/SGPT 37 U/L (13-56); Albumin, Serum 3.1 g/dL (3.2-5.0); Alkaline Phosphatase 53 U/L (45-117); Anion Gap 8 (5-15); BUN 6 mg/dL (7-18); BUN/Creat Ratio 7.9 RATIO (10-20); Calcium,Total 8.8 mg/dL (8.5-10.1); Chloride 112 mmol/L (98-107); Creatinine, Serum 0.76 mg/dL (0.55-1.02); EST Glomerular Filtration Rate 91 mL/min (>60); Est Glom Filt Rate - Afr Amer 110 mL/min (>60); Estimated Creatinine Clearance 90.31 ml/min; Globulin 3.9 g/dL (2.2-4.2); Glucose 142 mg/dL (74-106); Lipase 89 U/L (73-393); Potassium 3.9 mmol/L (3.5-5.1); Sodium Level 140 mmol/L (136-145)
[2020-02-03 15:03] LABS: Red Blood Cells-Urine 0 SEEN /hpf (0-5)
[2020-02-03 15:10] LABS: Color, Urine Yellow (Yellow); Glucose, Dipstick Normal (Normal); Ketone-Dipstick Negative (Negative); Leukocyte Esterase-Dipstick Negative /ul (Negative); Nitrite-Dipstick Negative (Negative); Occult Blood-Urine Negative /ul (Negative); Protein-Dipstick 15 mg/dl (Negative); Urine Bilirubin Dipstick Negative (Negative); Urine Clarity Cloudy (Clear); Urine Urobilinogen Normal (Normal)
[2020-02-03 15:30] VITALS: BP 138/76; PULSE 100; RESP 18; TEMP 36.8; O2SAT 100
[2020-02-03 15:32] LABS: Hyaline Cast 0-5 SEEN /lpf (0-5)
[2020-02-03 15:33] LABS: Fine Granular Cast- Urine 0-5 SEEN /lpf (0-5)
[2020-02-03 15:35] LABS: Bacteria 2+ /hpf (None Seen); Calcium Oxalate Crystals Ur 1+ /hpf (<or=2+); Mucous, Urine 2+ /hpf (<or=2+)
[2020-02-03 15:36] LABS: Squamous Epithelial Cells - UA 10-25 SEEN /hpf (5-10); White Blood Cells 0-5 SEEN /hpf (0-5)
[2020-02-03 15:47] LABS: Platelet Estimate MOD INC (ADEQ)
[2020-02-03 15:48] LABS: Anisocytosis RARE; Macrocytosis RARE; Red Cell Morphology N CHROM NORMAL (NORM C&C)
[2020-02-03 16:08] VITALS: BP 138/76; PULSE 100; RESP 18; TEMP 36.8; O2SAT 100
== END 2020-02-03 16:10 | disposition home or self-care (01) ==
PROVIDERS: Emergency Provider Physician Assistant Medical; PCP Student in an Organized Health Care Education/Training Program
DX: R10.32 Left lower quadrant pain (principal); R11.2 Nausea with vomiting, unspecified; R19.7 Diarrhea, unspecified; R18.8 Other ascites; D18.03 Hemangioma of intra-abdominal structures; D72.829 Elevated white blood cell count, unspecified; K43.9 Ventral hernia without obstruction or gangrene; E03.9 Hypothyroidism, unspecified; F32.9 Major depressive disorder, single episode, unspecified; F41.9 Anxiety disorder, unspecified; F17.200 Nicotine dependence, unspecified, uncomplicated; Z79.899 Other long term (current) drug therapy; Z88.5 Allergy status to narcotic agent; Z88.0 Allergy status to penicillin; Z90.710 Acquired absence of both cervix and uterus
CPT/HCPCS: 74177; 80053; 81001; 83690; 85025; 96361; 96374; 96375; 96376; 99283; J7030; A4216; J2405

== ENCOUNTER → 2020-02-29 09:56 | Outpatient (CLI) | payer MEDICAID, SELFPAY ==
[2020-02-03 14:17] VITALS: BMI 31.2
[2020-02-29 11:54] LABS: Hepatitis C Antibody Non-Reactive (Nonreactive)
== END ==
PROVIDERS: PCP Student in an Organized Health Care Education/Training Program; Referring Provider Student in an Organized Health Care Education/Training Program; Visit Provider Student in an Organized Health Care Education/Training Program
DX: R79.89 Other specified abnormal findings of blood chemistry (principal)
CPT/HCPCS: 36415; 86803

== ENCOUNTER 2020-03-06 09:04 | Emergency (ER) | payer MEDICAID, SELFPAY ==
[2020-03-06 09:05] VITALS: BP 146/95; PULSE 95; RESP 18; TEMP 36.6; O2SAT 98; BMI 31.6
--- NOTE | 2020-03-06 09:20 | ED.DCSUM_ITS ---
History of Present Illness Chief Complaint: Abscess Informant: Patient Narrative: Patient is a 39-year-old female who presents to the emergency department for abscess in the right groin. She has had these before in the past requiring I&D. This episode occurred 3 days ago. She believes that she has an ingrown hair because she was shaving just prior to the onset of this. She denies any history of MRSA. She denies any fever/chills or any nausea/vomiting. Walking does aggravate the pain. She denies any extension into the vagina/perineum. She tried to use warm compresses as well as baths but this has not helped. No drainage from the area. She denies any history of IV drug abuse. She is a current everyday smoker. Past Medical History - Allergies and Home Meds Allergies/Adverse Reactions: Allergies acetaminophen [From Vicodin] Allergy (Severe, Verified 03/06/20 09:07) Other DIFFICULTY SWALLOWING RASH hydrocodone [From Vicodin] Allergy (Severe, Verified 03/06/20 09:07) Other DIFFICULTY SWALLOWING RASH penicillin V Allergy (Severe, Verified 03/06/20 09:07) Other DIFFICULTY SWALLOWING RASH Penicillins Allergy (Verified 03/06/20 09:07) Rash Primary Care Physician: Delaney Vance MD [Primary Care Provider] - Past Medical History: - - Congenital hypothyroidism Surgical History: hysterectomy Smoking Status: Current every day smoker Drugs: None Review of Systems All systems negative except as indicated General: Denies: Chills, Fever, Sweats Eyes: Denies: Visual changes - bilaterally, Diplopia ENT: Denies: Rhinorrhea, Sore throat Cardiovascular: Denies: Chest pain, Palpitations Respiratory: Denies: Dyspnea, Cough, Dyspnea on exertion Gastrointestinal: Denies: Abdominal pain, Nausea, Vomiting, Diarrhea Genitourinary: Denies: Dysuria, Hematuria, Frequency Musculoskeletal: Denies: Back pain, Extremity Pain Skin: Reports: Abscess - Right groin. Denies: Rash, Wounds Neurological: Denies: Headache, Weakness, Numbness Physical Exam Vital Signs/Narrative: Vital Signs Temp Pulse Resp BP Pulse Ox 03/06/20 09:05 98 F 95 18 146/95 H 98 Inital Vital Signs reviewed: Yes General: Well nourished, Well developed, No Acute Distress Head: Normocephalic, Atraumatic Eyes: Perrl, EOMI ENT: Moist mucous membranes, No rhinorrhea Neck: Supple, Nontender Cardiovascular: Regular rate, Regular rhythm, No murmurs Respiratory: No distress, CTA bilaterally, Chest nontender Abdomen: Soft, Nontender, Nondistended Back: Nontender, Normal Inspection Extremities: Nontender, No edema Skin: Normal color, No rash, - - Patient has erythema, swelling and warmth over the inguinal crease. This does not extend to the labia. No extension into perineum. Neurological: Alert, Oriented x3, Cranial nerves II-XII grossly intact, Normal Strength, Normal Sensation Psychological: Normal affect, Normal Mood Diagnostic/Tx/Re-eval - Medical Decision Making Patient presents to the emerge department for abscess in the right groin. On arrival to emerge department vital signs within normal limits. She does not appear in acute distress. Low concern for NSTI. I&D performed at bedside. Patient tolerated well. Will place on. She does h ave an allergy to penicillin but she states she is had Keflex previously. She has never had an issue with this medication. She is to follow-up with her PCP for wound recheck. If she continues to have increased swelling and fever/chills she is to return to the emerge department immediately. She understands and is agreeable this plan. Will discharge home in stable condition. Procedures Procedure(s): Procedure name: Abscess incision and drainage. Informed consent was obtained before procedure started. The appropriate timeout was taken. The area was prepped and draped in the usual sterile fashion. Area surrounding the abscess was cleaned with iodine. The area was anesthetized using 5 cc 1% lidocaine with epinephrine. Using an 15 blade a small incision was made. A large amount of purulent drainage was obtained. Wound dressed. Patient tolerated the procedure well without any apparent complications. ED Disposition - Plan for ED Patient: Disposition: Psychiatric Hospital or Unit Diagnosis: Abscess of right groin Instructions: ED Abscess Incision And Drainage Prescriptions: Smz/Tmp Ds [Bactrim Ds] 2 tab PO BID 7 Days #28 tab Transmission Status: Pending to [facility] Cephalexin [Keflex] 500 mg PO Q12 #14 cap Transmission Status: Pending to [facility] Referrals: Delaney Vance MD [Primary Care Provider] - 2 Days for wound check
[2020-03-06] MEDS: Acetaminophen 325 MG Tablet 650 MG PO (10:02)
[2020-03-06 10:09] VITALS: RESP 17
== END 2020-03-06 10:09 | disposition home or self-care (01) ==
PROVIDERS: Emergency Provider Emergency Medicine; PCP Student in an Organized Health Care Education/Training Program
DX: L02.214 Cutaneous abscess of groin (principal); E03.1 Congenital hypothyroidism without goiter; F17.200 Nicotine dependence, unspecified, uncomplicated; Z79.899 Other long term (current) drug therapy; Z90.710 Acquired absence of both cervix and uterus
CPT/HCPCS: 10060; 99283

== ENCOUNTER 2020-06-18 16:48 | Emergency (ER) | payer MEDICAID, SELFPAY ==
[2020-06-18 16:49] VITALS: BP 123/115; PULSE 145; RESP 17; TEMP 36.3; O2SAT 98; BMI 31.1
--- NOTE | 2020-06-18 17:26 | EKG12_ITS ---
Test Reason : CP Blood Pressure : / mmHG Vent. Rate : 139 BPM Atrial Rate : 139 BPM P-R Int : 126 ms QRS Dur : 080 ms QT Int : 304 ms P-R-T Axes : 054 084 019 degrees QTc Int : 462 ms Sinus tachycardia Nonspecific ST and T wave abnormality Abnormal ECG Confirmed by THEO ORTEGA, ESAU ([id number]), editor greeting card BECKY REYNA ([id number]) on 06/20/2020 9:16:59 AM Referred By: Confirmed By:ESAU VENEGAS MD
[2020-06-18 17:31] VITALS: BP 151/110; PULSE 126; RESP 21; O2SAT 97
--- NOTE | 2020-06-18 17:33 | ED.DCSUM_ITS ---
History of Present Illness Chief Complaint: General Illness Informant: Patient Narrative: Patient is a 39-year-old female who presents to the emergency department for chest tightness and shortness of breath. This started yesterday. She has had episodes like this before in the past but they typically resolve on their own. She has a history of anxiety and is not sure if this is related. She is under a lot of stress. She is currently on house arrest and her daughter just ran away. She does not know aggravating or relieving factors to her symptoms. She denies any swelling in her lower extremities or pain in her calves. No history of DVT/PE. She thought she had some swelling in her hands last night so she took off her rings. She has had a mild cough but denies any fevers or chills. No nausea/vomiting or abdominal pain. No diarrhea. No urinary symptoms. She states that she has not been eating or drinking very well lately. She has been smoking a lot more than her normal. She is up to 2 packs/day. Patient also concerned because she states that her last doctor's appointment a week ago they told her her kidney function was up. Patient does have a history of hypothyroidism is on Synthroid. She states she is going to get her levels checked 1 month from now. Past Medical History - Allergies and Home Meds Allergies/Adverse Reactions: Allergies acetaminophen [From Vicodin] Allergy (Severe, Verified 06/18/20 16:52) Other DIFFICULTY SWALLOWING RASH hydrocodone [From Vicodin] Allergy (Severe, Verified 06/18/20 16:52) Other DIFFICULTY SWALLOWING RASH penicillin V Allergy (Severe, Verified 06/18/20 16:52) Other DIFFICULTY SWALLOWING RASH Penicillins Allergy (Verified 06/18/20 16:52) Rash Primary Care Physician: Pauline Moore MD [Primary Care Provider] - 1 Day Prior records reviewed: Yes Past Medical History: - - Hypothyroidism, anxiety/depression Surgical History: hysterectomy Smoking Status: Current every day smoker Review of Systems All systems negative except as indicated General: Denies: Chills, Fever, Sweats Eyes: Denies: Visual changes - bilaterally, Diplopia ENT: Denies: Rhinorrhea, Sore throat Cardiovascular: Reports: Chest pain - Chest tightness. Denies: Palpitations Respiratory: Reports: Dyspnea, Cough Gastrointestinal: Denies: Abdominal pain, Nausea, Vomiting, Diarrhea Genitourinary: Denies: Dysuria, Hematuria, Frequency Musculoskeletal: Reports: Swelling - Hands bilaterally. Denies: Back pain, Extremity Pain Skin: Denies: Rash, Wounds Neurological: Denies: Headache, Weakness, Numbness Psych: Reports: Anxiety Physical Exam Vital Signs/Narrative: Vital Signs Temp Pulse Resp BP Pulse Ox 06/18/20 16:49 97.4 F L 145 H 17 123/115 H 98 Inital Vital Signs reviewed: Yes - Tachycardic General: Well nourished, Well developed, No Acute Distress Head: Normocephalic, Atraumatic Eyes: Perrl, EOMI ENT: Moist mucous membranes, No rhinorrhea Neck: Supple, Nontender Cardiovascular: Regular rhythm, No murmurs, Tachycardia Respiratory: No distress, CTA bilaterally, Chest nontender Abdomen: Soft, Nontender, Nondistended, Normal bowel sounds Back: Nontender, Normal Inspection Extremities: Nontender. Negative for: Edema, Calf Tenderness Skin: Normal color, No rash Neurological: Alert, Oriented x3, Cranial nerves II-XII grossly intact, Normal Strength, Normal Sensation Psychological: Normal affect, Normal Mood Diagnostic/Tx/Re-eval - EKG Initial EKG Interpretation: - - Rate of 139 bpm in sinus tachycardia. Normal intervals. Normal axis. No ST elevations or depressions appreciated. No T wave abnormalities. - Medical Decision Making Patient presents to the ED for chest tightness cough shortness of breath. She is very anxious on examination. She has lots of stressors going on in her life currently. Upon arrival to the ED her heart rate is elevated but satting well on room air. Able to talk in full sentences. In no respiratory distress. EKG, chest x-ray basic lab work being obtained. Patient's lab work showed her TSH to be low at 0.1. The rest of her lab work did not reveal any significant acute abnormality. She does have an elevated white blood cell count but reviewing her previous hospitalizations is always been elevated around this level. D-dimer within normal limits and low concern for pulmonary embolism. Her x-ray was read as a possibility of a right lower lobe pneumonia. She has had a mild cough which is not too much worse than her baseline but given the fact we cannot rely on her white blood cell count we will treat this at this time. We will give her first dose of azithromycin here in the emergency department and write a prescription for home treatment. Did co ntact her PCP and let her know the findings with her TSH. Her heart rate did come down very well with the IV fluids. Patient does feel comfortable going home at this time. Warning signs and symptoms for which to return to the emergency department reviewed with her. She understands and is agreeable this plan. Will discharge home in stable condition. All questions answered. ED Disposition - Plan for ED Patient: Disposition: Home or Assisted Living Diagnosis: Chest tightness, Dyspnea, Low TSH level, Community acquired pneumonia Instructions: Pneumonia, ED Dyspnea Prescriptions: Azithromycin 250 mg PO DAILY #4 tab Transmission Status: Received by [email or web address] #[email or web address] Referrals: Pauline Moore MD [Primary Care Provider] - 1 Day
[2020-06-18] MEDS: 0.9% Normal Saline 1,000 ML 1000 ML IV (17:40)
--- NOTE | 2020-06-18 17:40 | RAD_ITS ---
STUDY: X-RAY CHEST REASON FOR EXAM: Female, 39 years old. CHEST PAIN TECHNIQUE: Single frontal view of the chest. COMPARISON: None. FINDINGS: Cardiac silhouette unremarkable. Pulmonary vascularity unremarkable. Aorta unremarkable. Minimal right base airspace opacities. No pleural effusions. Upper abdomen unremarkable. Osseous structures intact. No pneumothorax. RAD/Chest 1 View (Portable) IMPRESSION: Minimal right lower lobe airspace opacities may represent pneumonia in the appropriate clinical setting. Electronically Signed: Daniel Block, at 19:40 EDT Tel , Service support ,
[2020-06-18 17:41] LABS: Absolute Lymphocyte Count 4.13 X10^3/uL (0.83-4.51); Absolute Neutrophil Count 12.1 X10^3/uL (2.0-7.7); Basophil# 0.15 X10^3/uL; Basophil% 0.8 % (0-1); Eosinophil# 0.15 X10^3/uL; Eosinophils% 0.8 % (0-5); Hematocrit 42.2 % (37-47); Hemoglobin 14.3 g/dL (12.0-15.0); Lymphocyte # 4.13 X10^3/ul (4.0); Lymphocyte % 22.4 % (19-41); Mean Corp Hgb Conc 33.9 g/dL (32-36); Mean Corpuscular Hgb 30.1 pg (27.0-32.0); Mean Corpuscular Volume 88.8 fL (81-99); Mean Platelet Vol. 9.8 fl (6.2-12.0); Monocyte# 1.48 X10^3/uL; NRBC Flagged by Analyzer 0 % (0-5); Neutrophil # 12.13 X10^3/uL (2.7-7.7); Platelet Count 456 K/mm3 (150-450); RBC Distribution Width CV 12.8 % (11.6-14.6); Red Blood Count 4.75 M/mm3 (4.2-5.4); White Blood Count 18.4 K/mm3 (4.4-11.0)
[2020-06-18 17:46] LABS: D-Dimer Quantitative (DVT/PE) 0.32 FEU/ug/m (0.27-0.49)
[2020-06-18 18:00] LABS: Anion Gap 10 (5-15); BUN 8 mg/dL (7-18); BUN/Creat Ratio 10.6 RATIO (10-20); Calcium,Total 9.8 mg/dL (8.5-10.1); Chloride 108 mmol/L (98-107); Creatinine, Serum 0.76 mg/dL (0.55-1.02); EST Glomerular Filtration Rate 91 mL/min (>60); Est Glom Filt Rate - Afr Amer 110 mL/min (>60); Estimated Creatinine Clearance 90.31 ml/min; Glucose 104 mg/dL (74-106); Potassium 3.8 mmol/L (3.5-5.1); Sodium Level 137 mmol/L (136-145)
[2020-06-18 19:37] VITALS: BP 134/93; PULSE 101; RESP 16; O2SAT 98
[2020-06-18 20:15] VITALS: BP 132/93; PULSE 101; RESP 22; O2SAT 98
[2020-06-18] MEDS: hydrOXYzine PAM 25 MG Capsule PO (20:15)
[2020-06-18] MEDS: Azithromycin 250 MG Tablet 500 MG PO (20:15)
== END 2020-06-18 20:20 | disposition home or self-care (01) ==
PROVIDERS: Emergency Provider Emergency Medicine; PCP Internal Medicine
DX: J18.9 Pneumonia, unspecified organism (principal); R06.00 Dyspnea, unspecified; R00.0 Tachycardia, unspecified; E03.9 Hypothyroidism, unspecified; F17.210 Nicotine dependence, cigarettes, uncomplicated; Z79.899 Other long term (current) drug therapy
CPT/HCPCS: 71045; 80048; 84443; 84484; 85025; 85379; 93005; 96360; 96361; 99283; J7030; A4216

== ENCOUNTER 2020-07-15 21:43 | Emergency (ER) | payer MEDICAID, SELFPAY ==
[2020-07-15 21:44] VITALS: BP 138/66; PULSE 94; RESP 16; TEMP 35.7; O2SAT 98; BMI 31.7
[2020-07-15] MEDS: Ketorolac 15 MG/ML Vial IV (22:26)
--- NOTE | 2020-07-15 22:28 | ED.VIS.GEN ---
History of Present Illness Chief Complaint: Abd Pain Informant: Patient Narrative: Patient is a 39-year-old female with a past medical history of hypothyroidism who presents to the emergency department for lower quadrant abdominal pain. It mostly in the suprapubic region. She currently rates the pain as an 8 out of 10. She has not been taking any medications for this because she is not sure which she is able to take. Pain does not radiate to her back. She has had this before in the past. She was diagnosed with ascites and is supposed to have a CT scan performed in early July. She has had urinary frequency but denies dysuria or hematuria. No change in bowel habits. She denies any nausea vomiting. No chest pain or shortness of breath. No back pain. She has a history of hysterectomy and sections. Past Medical History - Allergies and Home Meds Allergies/Adverse Reactions: Allergies acetaminophen [From Vicodin] Allergy (Severe, Verified 07/15/20 21:46) Other DIFFICULTY SWALLOWING RASH hydrocodone [From Vicodin] Allergy (Severe, Verified 07/15/20 21:46) Other DIFFICULTY SWALLOWING RASH penicillin V Allergy (Severe, Verified 07/15/20 21:46) Other DIFFICULTY SWALLOWING RASH Penicillins Allergy (Verified 07/15/20 21:46) Rash Primary Care Physician: Pauline Moore MD [Primary Care Provider] - Prior records reviewed: Yes Surgical History: hysterectomy Smoking Status: Current every day smoker Review of Systems All systems negative except as indicated General: Denies: Chills, Fever, Sweats Eyes: Denies: Visual changes - bilaterally, Diplopia ENT: Denies: Rhinorrhea, Sore throat Cardiovascular: Denies: Chest pain, Palpitations Respiratory: Denies: Dyspnea, Cough, Dyspnea on exertion Gastrointestinal: Reports: Abdominal pain. Denies: Nausea, Vomiting, Diarrhea, Melena, Hematochezia Genitourinary: Reports: Frequency. Denies: Dysuria, Hematuria Musculoskeletal: Denies: Back pain, Extremity Pain Skin: Denies: Rash, Wounds Neurological: Denies: Headache, Weakness, Numbness Physical Exam Vital Signs/Narrative: Vital Signs Temp Pulse Resp BP Pulse Ox 07/15/20 21:44 96.2 F L 94 16 138/66 H 98 Inital Vital Signs reviewed: Yes General: Well nourished, Well developed, No Acute Distress Head: Normocephalic, Atraumatic Eyes: Perrl, EOMI ENT: Moist mucous membranes, No rhinorrhea Neck: Supple, Nontender Cardiovascular: Regular rate, Regular rhythm, No murmurs Respiratory: No distress, CTA bilaterally, Chest nontender Abdomen: Soft, Nondistended, Normal bowel sounds, Tender - Suprapubic, - - No pain over McBurney's point. Negative for: Rovsig's sign, Luke's sign Back: Nontender, Normal Inspection. Negative for: CVA tenderness Extremities: Nontender, No edema Skin: Normal color, No rash Neurological: Alert, Oriented x3, Cranial nerves II-XII grossly intact, Normal Strength, Normal Sensation Psychological: Normal affect, Normal Mood Diagnostic/Tx/Re-eval - Medical Decision Making Patient presents emergency department for abdominal pain. This mostly suprapubic. She states she supposed have a follow-up CT scan in the upcoming 7 to 10 days. Her abdominal exam is very benign except for the pain with the palpation of the suprapubic region. Will check basic lab work and treat symptomatically with a dose of Toradol. Patient's lab work showed a mild elevation of her white blood cell count although it is chronically elevated. No significant electrolyte abnormality. Hepatic function within normal limits. Her urine does not show any evidence of infection. She is a benign abdominal exam. Low concern for appendicitis or ovarian torsion. She is feeling better after the Toradol treatment. She does feel comfortable going home. She is going to follow-up with her outpatient CT scan. Warning signs and symptoms for which to return to the ED are reviewed with her. She understands and is agreeable this plan. All questions answered. ED Disposition - Plan for ED Patient: Disposition: Home or Assisted Living Diagnosis: Abdominal pain Instructions: ED Abdominal Pain Unkn Cause Fem Prescriptions: Dicyclomine HCl [Bentyl] 10 mg PO TIDAC 4 Days #10 cap Transmission Status: Pending to Send the Trend #30 Referrals: Pauline Moore MD [Primary Care Provider] - 1-2 Days if not improving
[2020-07-15 22:35] LABS: Bacteria 0 SEEN /hpf (None Seen); Mucous, Urine 0 SEEN /hpf (<or=2+); Red Blood Cells-Urine 0 SEEN /hpf (0-5); White Blood Cells 0 SEEN /hpf (0-5)
[2020-07-15 22:40] LABS: Absolute Lymphocyte Count 5.54 X10^3/uL (0.83-4.51); Absolute Neutrophil Count 8.1 X10^3/uL (2.0-7.7); Basophil% 0.6 % (0-1); Eosinophil# 0.45 X10^3/uL; Eosinophils% 2.9 % (0-5); Hematocrit 38.2 % (37-47); Hemoglobin 12.5 g/dL (12.0-15.0); Lymphocyte # 5.54 X10^3/ul (4.0); Mean Corp Hgb Conc 32.7 g/dL (32-36); Mean Corpuscular Hgb 29.9 pg (27.0-32.0); Mean Corpuscular Volume 91.4 fL (81-99); Mean Platelet Vol. 9.9 fl (6.2-12.0); Monocyte# 0.97 X10^3/uL; Monocyte% 6.3 % (0-10); NRBC Flagged by Analyzer 0 % (0-5); Neutrophil # 8.13 X10^3/uL (2.7-7.7); Neutrophil % 52.9 % (47-70); POSITIVE DIFFERENTIAL YES; POSITIVE MORPHOLOGY YES; Platelet Count 321 K/mm3 (150-450); RBC Distribution Width CV 13.1 % (11.6-14.6); RBC Distribution Width SD 43.4 fl (35.1-43.9); Red Blood Count 4.18 M/mm3 (4.2-5.4); White Blood Count 15.4 K/mm3 (4.4-11.0)
[2020-07-15 22:42] LABS: Color, Urine Yellow (Yellow); Glucose, Dipstick Normal (Normal); Ketone-Dipstick 5 mg/dl (Negative); Leukocyte Esterase-Dipstick Negative /ul (Negative); Nitrite-Dipstick Negative (Negative); Occult Blood-Urine Negative /ul (Negative); Protein-Dipstick Negative (Negative); Urine Bilirubin Dipstick Negative (Negative); Urine Clarity Clear (Clear); Urine Urobilinogen Normal (Normal); Urine pH 6.5 (5.0 - 8.0)
[2020-07-15 22:48] LABS: Squamous Epithelial Cells - UA 0-5 SEEN /hpf (5-10)
[2020-07-15 22:52] LABS: Differential Indicated SCAN CRITERIA MET
[2020-07-15 23:02] LABS: ALB/GLOB Ratio 0.9 RATIO (0.9-2.4); AST(SGOT) 36 U/L (15-37); Alanine Aminotransfer ALT/SGPT 71 U/L (13-56); Albumin, Serum 3.5 g/dL (3.2-5.0); Alkaline Phosphatase 51 U/L (45-117); Anion Gap 7 (5-15); BUN 9 mg/dL (7-18); BUN/Creat Ratio 11.7 RATIO (10-20); Chloride 108 mmol/L (98-107); Creatinine, Serum 0.77 mg/dL (0.55-1.02); EST Glomerular Filtration Rate 89 mL/min (>60); Est Glom Filt Rate - Afr Amer 108 mL/min (>60); Estimated Creatinine Clearance 89.14 ml/min; Globulin 3.8 g/dL (2.2-4.2); Glucose 133 mg/dL (74-106); Potassium 4.2 mmol/L (3.5-5.1); Protein, Total 7.3 g/dL (6.4-8.2); Sodium Level 140 mmol/L (136-145)
[2020-07-15 23:11] LABS: Differential Comment SCANNED
[2020-07-15 23:28] VITALS: RESP 18
== END 2020-07-15 23:29 | disposition home or self-care (01) ==
PROVIDERS: Emergency Provider Emergency Medicine; PCP Internal Medicine
DX: R10.30 Lower abdominal pain, unspecified (principal); R18.8 Other ascites; R35.0 Frequency of micturition; E03.9 Hypothyroidism, unspecified; Z79.899 Other long term (current) drug therapy; F17.200 Nicotine dependence, unspecified, uncomplicated; Z90.710 Acquired absence of both cervix and uterus
CPT/HCPCS: 80048; 80053; 81001; 85025; 96374; 99283; A4216

== ENCOUNTER 2020-07-17 20:16 | Emergency (ER) | payer MEDICAID, SELFPAY ==
[2020-07-17 20:16] VITALS: BP 144/90; PULSE 103; RESP 18; TEMP 36.3; O2SAT 98; BMI 32.1
--- NOTE | 2020-07-17 21:42 | ED.VIS.GEN ---
History of Present Illness Chief Complaint: Edema Narrative: This patient is a 39-year-old female with a history of PTSD and hyperthyroidism. She is also in the process of being worked up for ascites. Yesterday she developed pain in her left calf. She saw a family member who was a nurse and thought it may be slightly swollen. She presented here due to concern for possible blood clot. No chest pain. No shortness of breath. No recent travel or immobilization. No recent hospitalization. No prior history of DVT or pulmonary embolism. No known coagulopathies. Past Medical History - Allergies and Home Meds Allergies/Adverse Reactions: Allergies acetaminophen [From Vicodin] Allergy (Severe, Verified 07/17/20 20:19) Other DIFFICULTY SWALLOWING RASH hydrocodone [From Vicodin] Allergy (Severe, Verified 07/17/20 20:19) Other DIFFICULTY SWALLOWING RASH penicillin V Allergy (Severe, Verified 07/17/20 20:19) Other DIFFICULTY SWALLOWING RASH Penicillins Allergy (Verified 07/17/20 20:19) Rash Primary Care Physician: Pauline Moore MD [Primary Care Provider] - Past Medical History: - - Hyperthyroidism, ascites, PTSD Surgical History: hysterectomy Smoking Status: Current every day smoker Review of Systems All systems negative except as indicated General: Denies: Fever Cardiovascular: Denies: Chest pain Respiratory: Denies: Dyspnea Gastrointestinal: Denies: Vomiting Musculoskeletal: Reports: Swelling, Extremity Pain Skin: Denies: Rash Neurological: Denies: Headache Hematologic: Denies: Easy bruising, Easy bleeding Physical Exam Vital Signs/Narrative: Vital Signs Temp Pulse Resp BP Pulse Ox 07/17/20 20:16 97.3 F L 103 H 18 144/90 H 98 Inital Vital Signs reviewed: Yes General: Well nourished, Well developed Head: Normocephalic Eyes: EOMI ENT: Moist mucous membranes Neck: Supple Cardiovascular: Regular rhythm, Tachycardia Respiratory: No distress, CTA bilaterally Extremities: - - No appreciable edema, easily palpable and symmetric dorsalis pedis pulses right lower extremity is nontender, patient has mild left calf tenderness no erythema it is not hot to the touch Skin: Normal color Neurological: Alert Psychological: Normal affect Diagnostic/Tx/Re-eval - Medical Decision Making Venous duplex is pending at the time of this dictation will be signed out to the oncoming physician. If negative patient can be discharged home to follow-up as an outpatient. ED Disposition - Plan for ED Patient: Disposition: Home or Assisted Living Diagnosis: Leg pain, left Instructions: ED ACHING MUSCLES Referrals: Pauline Moore MD [Primary Care Provider] -
--- NOTE | 2020-07-17 21:53 | US_ITS ---
STUDY: VENOUS DOPPLER ULTRASOUND - LEFT LOWER EXTREMITY REASON FOR EXAM: Female, 39 years old. LT LEG SWELLING AND ACHE POSTERIOR CALF TECHNIQUE: Ultrasound evaluation of the deep vein system to include tang-scale imaging and compression was performed. Tang-scale imaging and Doppler sonographic evaluation, including duplex spectral analysis and qualitative color flow sonography, was performed. COMPARISON: None. FINDINGS: Common Femoral Vein: Normal compression, spontaneity and augmentation. Normal color Doppler. Common Femoral Vein/Greater Saphenous Junction: Normal compression, spontaneity and augmentation. Normal color Doppler. Femoral Proximal: Normal compression, spontaneity and augmentation. Normal color Doppler. Femoral Middle: Normal compression, spontaneity and augmentation. Normal color Doppler. Femoral Distal: Normal compression, spontaneity and augmentation. Normal color Doppler. Popliteal Vein: Normal compression, spontaneity and augmentation. Normal color Doppler. Posterior Tibial Vein: Normal compression, spontaneity and augmentation. Normal color Doppler. Peroneal Vein: Normal compression, spontaneity and augmentation. Normal color Doppler. US/Venous Duplex Imag/Limited/Uni IMPRESSION: Normal venous Doppler ultrasound of the left lower extremity. Electronically Signed: Surendra Galvez, at 22:39 EST Tel , Service support ,
[2020-07-17 22:40] VITALS: BP 123/88; PULSE 91; RESP 18; O2SAT 99
== END 2020-07-17 22:40 | disposition home or self-care (01) ==
LOC: ED 22:33
PROVIDERS: Emergency Provider Emergency Medicine; PCP Internal Medicine
DX: M79.662 Pain in left lower leg (principal); E05.90 Thyrotoxicosis, unspecified without thyrotoxic crisis or storm; F17.200 Nicotine dependence, unspecified, uncomplicated; Z79.899 Other long term (current) drug therapy
CPT/HCPCS: 93971; 99282

== ENCOUNTER 2020-12-12 17:19 | Emergency (ER) | payer MEDICAID, SELFPAY ==
[2020-12-12 17:20] VITALS: BP 136/73; PULSE 93; RESP 15; TEMP 36.2; O2SAT 98
--- NOTE | 2020-12-12 17:33 | EKG12_ITS ---
Test Reason : REPEAT EKG Blood Pressure : / mmHG Vent. Rate : 082 BPM Atrial Rate : 082 BPM P-R Int : 144 ms QRS Dur : 080 ms QT Int : 392 ms P-R-T Axes : 057 085 067 degrees QTc Int : 457 ms Normal sinus rhythm Normal ECG Confirmed by ARABELLA ORTEGA, HALINA ([id number]), editorial manager BECKY REYNA ([id number]) on 12/16/2020 9:54:07 AM Referred By: RODNEY Confirmed By:ROSA BELL MD
--- NOTE | 2020-12-12 17:34 | ED.DCSUM_ITS ---
History of Present Illness Chief Complaint: Shortness of Breath Informant: Patient Narrative: 40-year-old female with history of diabetes, hyperlipidemia, smoker of 1 pack of cigarettes a day presenting with chest pain that she states feels like tightness across the center of her chest. She states this has been coming and going for the last 2 days. She does admit to some shortness of breath with exertion. She does not state that her pain gets worse with exertion. She has no history of DV T/PE and has no risk factors. She denies any cardiac history and has had a stress test or echocardiogram in the past. Patient denies any viral symptoms. She does state that her shoulders ache. Past Medical History - Allergies and Home Meds Allergies/Adverse Reactions: Allergies acetaminophen [From Vicodin] Allergy (Severe, Verified 12/12/20 17:22) Other DIFFICULTY SWALLOWING RASH hydrocodone [From Vicodin] Allergy (Severe, Verified 12/12/20 17:22) Other DIFFICULTY SWALLOWING RASH penicillin V Allergy (Severe, Verified 12/12/20 17:22) Other DIFFICULTY SWALLOWING RASH Penicillins Allergy (Verified 12/12/20 17:22) Rash Primary Care Physician: Pauline Moore MD [Primary Care Provider] - Prior records reviewed: Yes Past Medical History: - - Diabetes, hypothyroidism, hyperlipidemia, anxiety, diabetes Surgical History: hysterectomy Lives: Alone Smoking Status: Current every day smoker Alcohol: None Drugs: None Review of Systems General: Denies: Chills, Fever, Sweats Eyes: Denies: Visual changes - bilaterally, Diplopia ENT: Denies: Rhinorrhea, Sore throat Cardiovascular: Reports: Chest pain, - - Aching shoulders bilaterally Respiratory: Reports: Dyspnea, Dyspnea on exertion. Denies: Cough Gastrointestinal: Denies: Abdominal pain, Nausea, Vomiting, Diarrhea, Melena, Hematochezia Genitourinary: Denies: Dysuria, Hematuria, Frequency Musculoskeletal: Denies: Back pain, Extremity Pain Skin: Denies: Rash, Wounds Neurological: Denies: Headache, Weakness, Parasthesia, Numbness, -, - Psych: Denies: Depression, Anxiety, Suicidal thoughts, Suicidal ideations, -, - Endocrine: Denies: Polyuria, Polydipsia, Heat intolerance, Cold intolerance, -, - Physical Exam Vital Signs/Narrative: Vital Signs Temp Pulse Resp BP Pulse Ox 12/12/20 17:20 97.1 F L 93 15 136/73 H 98 Inital Vital Signs reviewed: Yes General: Well nourished, No Acute Distress Head: Normocephalic, Atraumatic Eyes: Perrl, EOMI. Negative for: Pale conjunctiva, Scleral icterus ENT: Moist mucous membranes, No rhinorrhea Cardiovascular: Regular rate, Regular rhythm Respiratory: No distress, CTA bilaterally Abdomen: Soft, Nontender, Nondistended Extremities: Nontender, No edema. Negative for: Edema, Calf Tenderness Skin: Normal color, No rash. Negative for: Cyanosis, Diaphoresis Neurological: Alert, Oriented x3, Cranial nerves II-XII grossly intact Psychological: Normal affect, Normal Mood Diagnostic/Tx/Re-eval Clinical Impression(s) from Imaging Studies Chest X-Ray 12/12/20 18:04 IMPRESSION: No acute thoracic pathology. Electronically Signed: Nishant Trammell MD at 18:34 EDT Tel , Service support , Laboratory Data 12/12/20 12/12/20 12/12/20 17:55 17:55 17:55 WBC 15.7 H RBC 4.03 L Hgb 12.3 Hct 37.7 MCV 93.5 MCH 30.5 MCHC 32.6 RDW Std Deviation 46.1 H RDW Coeff of Tevin 13.5 Plt Count 371 MPV 10.1 Immature Gran % (Auto) 4.900 H Neut % (Auto) 57.9 Lymph % (Auto) 26.4 [place] % (Auto) 6.6 Eos % (Auto) 2.9 Baso % (Auto) 1.3 H Absolute Neuts (auto) 9.1 H Absolute Lymphs (auto) 4.15 Nucleated RBC % 0 Sodium 137 Potassium 4.0 Chloride 108 H Carbon Dioxide 24.0 Anion Gap 5 BUN 16 Creatinine 1.04 H Estim Creat Clear Calc 95.17 Est GFR (MDRD) Af Amer 76 Est GFR (MDRD) Non-Af 63 BUN/Creatinine Ratio 15.4 Glucose 98 Calcium 9.3 Troponin I < 0.015 TSH 17.10 H Free T4 0.83 - Medical Decision Making 40-year-old female presenting with chest pain and shortness of breath for the last 2 days. She describes it is intermittent. She describes worsening shortness of breath with climbing stairs and walking briskly. She does not have increased chest pain with this. She has no DVT/PE risk factors. She is PERC negative. Patient had EKG performed on arrival which shows sinus rhythm at 81 bpm without signs of ischemic changes as interpreted by myself. Chest x-ray shows no acute cardiopulmonary process as interpreted by myself and radiology does agree. Patient does have a leukocytosis of 15,000 however she seems to always have a leukocytosis. Her hemoglobin hematocrit are stable. Renal function electrolytes are normal. Troponin is negative. TSH is 17 however the free T4 0.83. Patient is currently on Synthroid. Patient will have delta troponin secondary to heart score of 3. She is reevaluated and currently pain- free and sleeping in bed. Repeat EKG is normal sinus rhythm at 82 bpm without signs of ischemic changes as interpreted by myself. Second troponin is negative. I think stable to be discharged home at this time. She is minimal this plan. Will follow up with her PCP. Impression: 1 chest pain 2. Dyspnea ED Disposition - Plan for ED Patient: Disposition: Home or Assisted Living Instructions: ED Chest Pain, Uncertain Cause Referrals: Pauline Moore MD [Primary Care Provider] -
[2020-12-12 17:48] VITALS: O2SAT 99
[2020-12-12] MEDS: Aspirin 81 MG TAB.CHEW 324 MG PO (17:53)
--- NOTE | 2020-12-12 18:04 | RAD_ITS ---
STUDY: X-RAY CHEST REASON FOR EXAM: Female, 40 years old. Chest pain TECHNIQUE: Frontal view of the chest COMPARISON: X-ray chest 06/18/2020 FINDINGS: The lungs are clear. There are no pleural effusions. There is no pneumothorax. The heart is normal in size. The visualized osseous structures are within normal limits. RAD/Chest 1 View (Portable) IMPRESSION: No acute thoracic pathology. Electronically Signed: Nishant Trammell MD at 18:34 EDT Tel , Service support ,
[2020-12-12 18:10] LABS: Absolute Lymphocyte Count 4.15 X10^3/uL (0.83-4.51); Absolute Neutrophil Count 9.1 X10^3/uL (2.0-7.7); Basophil% 1.3 % (0-1); Eosinophil# 0.46 X10^3/uL; Eosinophils% 2.9 % (0-5); Hematocrit 37.7 % (37-47); Hemoglobin 12.3 g/dL (12.0-15.0); Lymphocyte # 4.15 X10^3/ul (0.83-4.51); Lymphocyte % 26.4 % (19-41); Mean Corp Hgb Conc 32.6 g/dL (32-36); Mean Corpuscular Hgb 30.5 pg (27.0-32.0); Mean Corpuscular Volume 93.5 fL (81-99); Mean Platelet Vol. 10.1 fl (6.2-12.0); Monocyte# 1.03 X10^3/uL; Monocyte% 6.6 % (0-10); NRBC Flagged by Analyzer 0 % (0-5); Neutrophil # 9.08 X10^3/uL (2.7-7.7); Neutrophil % 57.9 % (47-70); Platelet Count 371 K/mm3 (150-450); RBC Distribution Width CV 13.5 % (11.6-14.6); RBC Distribution Width SD 46.1 fl (35.1-43.9); Red Blood Count 4.03 M/mm3 (4.2-5.4); White Blood Count 15.7 K/mm3 (4.4-11.0)
[2020-12-12 18:28] LABS: Anion Gap 5 (5-15); BUN 16 mg/dL (7-18); BUN/Creat Ratio 15.4 RATIO (10-20); Calcium,Total 9.3 mg/dL (8.5-10.1); Chloride 108 mmol/L (98-107); Creatinine, Serum 1.04 mg/dL (0.55-1.02); EST Glomerular Filtration Rate 63 mL/min (>60); Est Glom Filt Rate - Afr Amer 76 mL/min (>60); Estimated Creatinine Clearance 95.17 ml/min; Glucose 98 mg/dL (74-106); Sodium Level 137 mmol/L (136-145)
[2020-12-12 19:01] LABS: T4 Free Direct 0.83 ng/dL (0.76-1.46)
[2020-12-12 19:31] VITALS: BP 101/56; PULSE 80; RESP 18; O2SAT 98
--- NOTE | 2020-12-12 20:23 | EKG12_ITS ---
Test Reason : Blood Pressure : / mmHG Vent. Rate : 081 BPM Atrial Rate : 081 BPM P-R Int : 150 ms QRS Dur : 078 ms QT Int : 384 ms P-R-T Axes : 055 082 061 degrees QTc Int : 446 ms Normal sinus rhythm Normal ECG Confirmed by ARABELLA ORTEGA, HALINA ([id number]), editorial specialist BECKY REYNA ([id number]) on 12/16/2020 9:54:22 AM Referred By: SPENCER Confirmed By:ROSA BELL MD
[2020-12-12 21:20] VITALS: BP 93/57; PULSE 86; RESP 20
[2020-12-12 22:22] VITALS: BP 93/57; PULSE 80; RESP 16; O2SAT 98
== END 2020-12-12 22:23 | disposition home or self-care (01) ==
LOC: ED 18:01
PROVIDERS: Emergency Provider Student in an Organized Health Care Education/Training Program; PCP Internal Medicine
DX: R07.9 Chest pain, unspecified (principal); R06.00 Dyspnea, unspecified; E11.9 Type 2 diabetes mellitus without complications; E78.5 Hyperlipidemia, unspecified; E03.9 Hypothyroidism, unspecified; F41.9 Anxiety disorder, unspecified; F17.210 Nicotine dependence, cigarettes, uncomplicated; Z79.84 Long term (current) use of oral hypoglycemic drugs; Z79.890 Hormone replacement therapy; Z79.899 Other long term (current) drug therapy
CPT/HCPCS: 71045; 80048; 84439; 84443; 84484; 85025; 93005; 99284; A4216

== ENCOUNTER 2021-05-04 13:18 | Emergency (ER) | payer MEDICAID, SELFPAY ==
[2021-05-04 13:19] VITALS: BP 111/89; PULSE 109; RESP 18; TEMP 36.3; O2SAT 97; BMI 29.3
[2021-05-04 14:18] VITALS: BP 110/72; PULSE 90; RESP 24; O2SAT 97
--- NOTE | 2021-05-04 14:41 | EX.ED.DYSGE1 ---
HPI History of Present Illness Chief Complaint: General Illness Informant: patient Onset/Context/Timing Onset: Days Context: Sudden Onset Timing: Intermittent and Waxes and wanes Quality: GI symptoms, myalgias and arthralgias exposure to Covid Location: Predominately GI Current Severity: Moderate Maximum Severity: Severe Worsened by: Nothing Relieved by: Nothing Associated Symptoms Associated Symptoms: GI symptoms with myalgias arthralgias Narrative Narrative: Patient is a 40-year-old woman who presents with myalgias and arthralgias started today. Several days ago she developed nausea and diarrhea. Her daughter is positive for Covid. She reports mild headache. She denies photophobia, neck pain or neck stiffness. She denies cough, shortness of breath or difficulty breathing. She has 1/2 pack/day smoker. She states she is decreased from 1 pack. She does have history of hypothyroidism, prediabetes and depression. Prior similar symptoms: No Recent Illness/Hospitalization: No PFSH PFSH Medical History Back pain delivery delivered Chronic infection of both ears Depression Diverticulosis Esophagitis Fatty liver GERD (gastroesophageal reflux disease) History of lymphocytosis Hypercholesterolemia Hypokalemia Hypothyroidism, congenital Intermittent palpitations Shortness of breath on exertion Stress headaches Tobacco abuse Umbilical hernia without obstruction and without gangrene Home Medications trazodone 300 mg PO QHS 02/21/18 [History Last Taken Unknown] buspirone 10 mg PO TID PRN 02/01/20 [History Last Taken Unknown] perphenazine 4 mg PO QHS 07/15/20 [History Last Taken Unknown] levothyroxine 125 mcg PO DAILY 07/17/20 [History Last Taken Unknown] aripiprazole 2 mg PO DAILY 12/12/20 [History Last Taken Unknown] metformin 500 mg PO DAILY 12/12/20 [History Last Taken Unknown] dicyclomine 20 mg PO TIDAC #20 capsule 05/04/21 [Rx Last Taken Unknown] ondansetron 4 mg PO Q8H PRN PRN #10 tab 05/04/21 [Rx Last Taken Unknown] Allergy/AdvReac Type Severity Reaction Status Date / Time acetaminophen [From Vicodin] Allergy Severe Other Verified 05/04/21 13:21 hydrocodone [From Vicodin] Allergy Severe Other Verified 09/12/21 13:21 penicillin V Allergy Severe Other Verified 05/04/21 13:21 Penicillins Allergy Rash Verified 05/04/21 13:21 Family History Mother Asthma Grandmother Thyroid cancer Heart disease Bleeding disorder Hypertension Father Diabetes Grandfather Heart disease Kidney disease Hypertension Mother Lung cancer COPD (chronic obstructive pulmonary disease) Aunt Liver cancer Stomach cancer Uncle Throat cancer Social History (Updated 05/04/21 @ 14:[address] Shin Varghese MD) household members: family Smoking Status: Current every day smoker tobacco type: cigarettes alcohol intake: current Alcohol type: other substance use type: does not use ROS ROS ED Constitutional Constitutional ED: Reports fever(s); Denies chills, subjective, sweats or weight loss Eyes Eyes: Denies blurry vision, change in vision or diplopia ENT ENT ED: Denies ear pain, rhinorrhea or sore throat Cardiovascular Cardiovascular: Denies chest pain, orthopnea, palpitations or paroxysmal nocturnal dyspnea Respiratory/Chest Respiratory/Chest: Denies cough, dyspnea, dyspnea on exertion, orthopnea or paroxysmal nocturnal dyspnea Gastrointestinal Gastrointestinal: Reports abdominal pain, diarrhea and nausea; Denies constipation or vomiting Genitourinary Genitourinary ED: Denies dysuria, hematuria or urinary frequency Musculoskeletal Musculoskeletal: Reports arthralgias and myalgias; Denies back pain or neck pain Integumentary Denies rash Neurologic Neurologic: Reports headache(s) and weakness Endocrine Endocrinology: Denies polydipsia, polyphagia or polyuria EXAM Physical Exam Const Vital Signs: 05/04/21 13:19 05/04/21 14:18 Temperature 97.4 F L Temperature Source Temporal Pulse Rate 109 H 90 Respiratory Rate 18 24 H Respiratory Effort Normal Respiratory Pattern Normal Blood Pressure 111/89 H 110/72 Blood Pressure Mean 96 84 Pulse Ox 97 97 Oxygen Delivery Method Room Air Room Air Positive well nourished, well developed and obese General Appearance ED: well developed and other Patient appears ill but not toxic. Nutritional Appearance: obese HEENT HEENT Narrative: Head is atraumatic normocephalic. Mucosa is dry. Nares patent. Ears normal. Eyes PERRL and EOMs intact bilaterally General Eye ED: Negative for pale conjunctiva or scleral icterus Neck no lymphadenopathy, supple and no JVD Chest Wall inspection of chest normal Resp normal respiratory effort and clear to auscultation bilaterally Cardio regular rate, regular rhythm, S1 normal heart sound, S2 normal heart sound and no murmurs GI normal to inspection, nondistended, normoactive bowel sounds, non-tender and non-distended Palpation: soft Back/Spine no CVA tenderness Cervical Spine: Negative for cervical spine tenderness Thoracic Spine / Upper Back: Negative for thoracic spinal tenderness or paraspinal muscle tenderness Extremity normal to inspection General Extremety ED: Negative for edema or tenderness General Extremity: Negative for edema Neuro oriented x3 and CN's II-XII intact bilaterally Sensorium / Orientation: alert Motor Exam: strength 5/5 throughout Psych mental status grossly normal Skin no rashes or lesions noted and no wounds MDM MDM MDM Narrative Medical decision making narrative: Patient states she had an outpatient Covid test yesterday. She was told it would take 24 to 40 hours to obtain results. In light of the fact that she has been exposed has GI symptoms suspect this is due to Covid. She is diabetic will obtain a BMP to assess glucose, anion gap and electrolytes and specifically potassium since she is reporting diarrhea. She will be observed. 1 L of normal saline was ordered since clinically she is dehydrated. Patient was reassessed at 1530. She looks better and reports feeling better. She was informed of results. Plan is to discharge with prescription for antiemetic, antispasmodic and antidiarrheal diarrheal medicine. Lab Data Labs: Laboratory Results - last 24 hr 05/04/21 05/04/21 14:58 15:00 Sodium 139 Potassium 4.2 Chloride 107 Carbon Dioxide 23.0 Anion Gap 9 BUN 11 Creatinine 0.74 Estim Creat Clear Calc 91.84 Est GFR (MDRD) Af Amer 112 Est GFR (MDRD) Non-Af 92 BUN/Creatinine Ratio 14.8 Glucose 87 Calcium 9.1 POC Glucose 74 Discharge Plan Triage Chief Complaint: General Illness ED Provider: Shin Varghese Dx/Rx/DC Orders Clinical Impression: Diarrhea due to COVID-19, Dehydration, mild Instructions: Coronavirus Disease 2019 (COVID-19): Overview, Coronavirus Disease 2019 (COVID-19): Caring for Yourself or Others, ED Dehydration (Adult) Prescriptions: New ondansetron [ondansetron] 4 MG tablet 4 mg PO Q8H PRN PRN (Reason: Nausea) Qty: 10 RF: 0 dicyclomine 10 MG capsule 20 mg PO TIDAC Qty: 20 RF: 0 No Action trazodone 150 MG tablet 300 mg PO QHS RF: 0 buspirone 5 MG tablet 10 mg PO TID PRN (Reason: Anxiety) RF: 0 perphenazine 4 MG tablet 4 mg PO QHS RF: 0 levothyroxine 175 MCG tablet 125 mcg PO DAILY RF: 0 metformin 500 MG tablet extended release 24 hr 500 mg PO DAILY RF: 0 aripiprazole 2 MG tablet 2 mg PO DAILY RF: 0 Primary Care Provider: Pauline Moore Referrals: Pauline Moore MD [Primary Care Provider] - As Needed Disposition Disposition: Home, Self Care
[2021-05-04] MEDS: Ondansetron 4 MG/2 ML Vial IV (14:59)
[2021-05-04] MEDS: 0.9% Normal Saline 1,000 ML 1000 ML IV (14:59)
[2021-05-04 15:06] LABS: Bedside Glucose 74 mg/dL (70-110)
[2021-05-04 15:27] LABS: Anion Gap 9 (5-15); BUN 11 mg/dL (7-18); BUN/Creat Ratio 14.8 RATIO (10-20); Calcium,Total 9.1 mg/dL (8.5-10.1); Chloride 107 mmol/L (98-107); Creatinine, Serum 0.74 mg/dL (0.55-1.02); EST Glomerular Filtration Rate 92 mL/min (>60); Est Glom Filt Rate - Afr Amer 112 mL/min (>60); Estimated Creatinine Clearance 91.84 ml/min; Glucose 87 mg/dL (74-106); Potassium 4.2 mmol/L (3.5-5.1); Sodium Level 139 mmol/L (136-145)
== END 2021-05-04 16:06 | disposition home or self-care (01) ==
PROVIDERS: Emergency Provider Emergency Medicine; PCP Internal Medicine
DX: U07.1 COVID-19 (principal); R19.7 Diarrhea, unspecified; E86.0 Dehydration; M25.50 Pain in unspecified joint; M79.10 Myalgia, unspecified site; R73.03 Prediabetes; E78.00 Pure hypercholesterolemia, unspecified; E03.9 Hypothyroidism, unspecified; K21.00 Gastro-esophageal reflux disease with esophagitis, without bleeding; F32.9 Major depressive disorder, single episode, unspecified; E66.9 Obesity, unspecified; F17.210 Nicotine dependence, cigarettes, uncomplicated; Z79.84 Long term (current) use of oral hypoglycemic drugs; Z79.890 Hormone replacement therapy; Z79.899 Other long term (current) drug therapy
CPT/HCPCS: 80048; 82962; 96361; 96374; 99285; J7030; J2405

== ENCOUNTER 2022-01-16 18:06 | Emergency (ER) | payer MEDICAID, SELFPAY ==
[2022-01-16 18:07] VITALS: BP 130/93; PULSE 98; RESP 16; TEMP 36.4; O2SAT 97; BMI 27.4
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
[2022-01-16] MEDS: Orphenadrine 60 MG/2 ML Ampul IM (18:43)
== END 2022-01-16 18:45 | disposition home or self-care (01) ==
LOC: ED 18:37
PROVIDERS: Emergency Provider Student in an Organized Health Care Education/Training Program; PCP Internal Medicine; Visit Provider Student in an Organized Health Care Education/Training Program
DX: S39.012A Strain of muscle, fascia and tendon of lower back, initial encounter (principal); M79.10 Myalgia, unspecified site; V48.6XXA Car passenger injured in noncollision transport accident in traffic accident, initial encounter; K76.0 Fatty (change of) liver, not elsewhere classified; E78.00 Pure hypercholesterolemia, unspecified; E03.1 Congenital hypothyroidism without goiter; K21.00 Gastro-esophageal reflux disease with esophagitis, without bleeding; F17.210 Nicotine dependence, cigarettes, uncomplicated; Z79.890 Hormone replacement therapy; Z79.899 Other long term (current) drug therapy
CPT/HCPCS: 96372; 99283

== ENCOUNTER 2024-01-06 18:37 | Emergency (ER) | payer MEDICAID, SELFPAY ==
[2024-01-06 18:38] VITALS: BP 123/98; PULSE 109; RESP 16; TEMP 35.6
[2024-01-06 18:41] VITALS: BP 123/98; PULSE 109; RESP 18; TEMP 35.6; BMI 35.4
--- NOTE | 2024-01-06 20:37 | ED.RN ---
The patient asked for s/s of a blood clot. This RN educated the patient on it. The patient wishes to have everything done outpatient due to her needing to be at home with her children. Dr Anderson scheduled an US outpatient. Patient agreeable.
--- NOTE | 2024-01-06 20:45 | EDS_ITS ---
HPI History of Present Illness Chief Complaint: Lower Extremity Injury Narrative Narrative: 43-year-old female presenting with left leg pain. Has pain behind the left knee and the left lateral thigh. She states has been cleaning her house because she has an inspection coming up and has been overdoing it. She denies any direct trauma. She thinks she might of strained something but states she was googling diagnoses and was concerned she had a blood clot. She has not any history of blood clot. No recent travel, surgery, has not been bedridden or immobilized. She is not on any exogenous hormones. No history of DVT/PE. She is ambulatory without antalgic gait. Denies chest pain or shortness of breath. [facility] Medical History Back pain delivery delivered Chronic infection of both ears Depression Diverticulosis Esophagitis Fatty liver GERD (gastroesophageal reflux disease) History of lymphocytosis Hypercholesterolemia Hypokalemia Hypothyroidism, congenital Intermittent palpitations Shortness of breath on exertion Stress headaches Tobacco abuse Umbilical hernia without obstruction and without gangrene Home Medications ?Medication ?Instructions ?Recorded ?Last Taken ?Type trazodone 150 mg tablet 300 mg PO QHS 02/21/18 Unknown History buspirone 5 mg tablet 10 mg PO TID PRN Anxiety 02/01/20 Unknown History perphenazine 4 mg tablet 4 mg PO QHS 07/15/20 Unknown History levothyroxine 175 mcg tablet 125 mcg PO DAILY 07/17/20 Unknown History aripiprazole 2 mg tablet 2 mg PO DAILY 12/12/20 Unknown History metformin 500 mg tablet,extended 500 mg PO DAILY 12/12/20 Unknown History release 24 hr dicyclomine 10 mg capsule 20 mg (2 x 10 mg) PO TIDAC #20 05/04/21 Unknown Rx CAPSULES ondansetron 4 mg disintegrating 4 mg PO Q8H PRN PRN Nausea #10 tabs 05/04/21 Unknown Rx tablet cyclobenzaprine 5 mg tablet 5 mg PO TID PRN muscle spasm #14 01/16/22 Unknown Rx tabs Allergy/AdvReac Type Severity Reaction Status Date / Time hydrocodone (From Vicodin) Allergy Severe Other Verified 01/06/24 18:39 penicillin V Allergy Severe Other Verified 01/06/24 18:39 Penicillins Allergy Rash Verified 01/06/24 18:39 Sulfa (Sulfonamide AdvReac HEADACHES Verified 01/06/24 18:39 Antibiotics) Family History Mother Asthma Grandmother Thyroid cancer Heart disease Bleeding disorder Hypertension Father Diabetes Grandfather Heart disease Kidney disease Hypertension Mother Lung cancer COPD (chronic obstructive pulmonary disease) Aunt Liver cancer Stomach cancer Uncle Throat cancer Social History household members: family Smoking Status: Current every day smoker tobacco type: cigarettes alcohol intake: current Alcohol type: other substance use type: does not use ROS ROS ED Constitutional Constitutional ED: Denies chills, fever(s) or sweats Eyes Eyes: Denies blurry vision or change in vision ENT ENT ED: Denies ear pain or sore throat Cardiovascular Cardiovascular: Denies chest pain, palpitations or racing heartbeat Respiratory/Chest Respiratory/Chest: Denies cough, dyspnea or sputum Gastrointestinal Gastrointestinal: Denies abdominal pain, constipation, diarrhea, nausea or vomiting Genitourinary Genitourinary ED: Denies dysuria, hematuria or urinary frequency Musculoskeletal Musculoskeletal: Reports other Details: Left leg pain ; Denies arthralgias, myalgias or neck pain Integumentary Denies abscess, Abrasions or rash Neurologic Neurologic: Denies headache(s), paresthesias or weakness Psychiatric Psychiatric: Denies anxiety, depression, suicidal ideation or suicidal thoughts Endocrine Endocrinology: Denies polydipsia or polyuria EXAM Physical Exam Const Vital Signs: 01/06/24 18:38 01/06/24 18:41 Temperature 96.1 F L 96.1 F L Temperature Source Temporal Temporal Pulse Rate 109 H 109 H Respiratory Rate 16 18 Blood Pressure 123/98 H 123/98 H Blood Pressure Mean 106 106 Positive well nourished General Appearance ED: NAD HEENT Reports moist mucous membranes normocephalic Resp normal respiratory effort Cardio regular rate and regular rhythm Extremity Extremity Narrative: There is minimal tenderness to palpation over the lateral aspect of the distal left thigh. No bruising, swelling, cords palpated. Patient has full range of motion of the left knee without any limitation. No ligamentous laxity. Left leg extensor mechanism is intact. Neuro oriented x3 Sensorium / Orientation: alert Motor Exam: strength 5/5 throughout MDM MDM MDM Narrative Medical decision making narrative: Patient presenting with left leg pain. She states that she does not want to stay anymore because she realized that she just strained her leg. 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 I did offer her an outpatient ultrasound that she can have performed tomorrow because she has to go home to take care of her children. She was amenable to this. I do not believe she needs any anticoagulation overnight. I again counseled her that she is low risk. She will follow-up tomorrow for the ultrasound. Impression: 1. Left leg strain Lab Data Attestation: I reviewed the patient's lab results. Discharge Plan Triage Chief Complaint: Lower Extremity Injury ED Provider: Dennis Anderson Dx/Rx/DC Orders Instructions: ED Muscle Strain, Extremity Prescriptions: No Action trazodone 150 MG tablet 300 mg PO QHS buspirone 5 MG tablet 10 mg PO TID PRN (Reason: Anxiety) perphenazine 4 MG tablet 4 mg PO QHS levothyroxine 175 MCG tablet 125 mcg PO DAILY metformin 500 MG tablet extended release 24 hr 500 mg PO DAILY aripiprazole 2 MG tablet 2 mg PO DAILY ondansetron [ondansetron] 4 MG tablet 4 mg PO Q8H PRN PRN (Reason: Nausea) Qty: 10 0RF dicyclomine 10 MG capsule 20 mg PO TIDAC Qty: 20 0RF cyclobenzaprine 5 mg tablet 5 mg PO TID PRN (Reason: muscle spasm) Qty: 14 0RF Other Ambulatory Orders: Venous Duplex US, Unilateral (Stat) Facility: [facility] - Location: [facility] Ordered By: Dr. Dennis Anderson Primary Care Provider: Care Physician,No Primary Referrals: Care Physician,No Primary [Primary Care Provider] - Print Language: Lao Disposition Disposition: Home, Self Care
== END 2024-01-06 20:46 | disposition home or self-care (01) ==
PROVIDERS: Emergency Provider Student in an Organized Health Care Education/Training Program; Visit Provider Student in an Organized Health Care Education/Training Program
DX: S86.912A Strain of unspecified muscle(s) and tendon(s) at lower leg level, left leg, initial encounter (principal); X58.XXXA Exposure to other specified factors, initial encounter; Y93.E9 Activity, other interior property and clothing maintenance; F17.210 Nicotine dependence, cigarettes, uncomplicated
CPT/HCPCS: 99282

== ENCOUNTER → 2024-01-10 | Outpatient (CLI) | payer MEDICAID, SELFPAY ==
--- NOTE | 2024-01-10 09:39 | VDLE_ITS ---
Reason For Study: Left leg pain RIGHT LEFT CFV is compressible, spontaneous, phasic, GSV is normal. competent and demonstrates normal CFV is compressible, spontaneous, phasic, augmentation. competent, and demonstrates normal Procedure augmentation. This is a venous duplex using B-mode, color FV is compressible, spontaneous, phasic, flow and spectral Doppler. competent and demonstrates normal Exam performed in department. augmentation. POP V is compressible, spontaneous, phasic, competent and demonstrates normal augmentation. T/P Trunk is compressible. PTV is compressible. LT PerV is compressible. VL/Venous Duplex US, Unilateral Interpretation Summary There is no evidence of left lower extremity deep vein thrombosis. Left great s aphenous vein appears patent and compressible segmentally. Normal flow patterns right common femoral vein Ordering Physician: Dennis Anderson Referring Physician: No Primary Care Physician Performed By: Zoë Matamoros RVT
== END | disposition home or self-care (01) ==
PROVIDERS: Referring Provider Student in an Organized Health Care Education/Training Program; Visit Provider Student in an Organized Health Care Education/Training Program
DX: M79.605 Pain in left leg (principal)
CPT/HCPCS: 93971